=== PATIENT | male | born 1970 | race Caucasian/White ===

== ENCOUNTER → 2019-01-20 | Outpatient (CLI) | payer SELFPAY ==
[~2019-01-20] MED LIST: DIAZ5 PO; HYDMOR2 PO; NAPR220; OXYACE5T PO; RXCLIN PO; RXHYDMOR2 PO; RXOXYACE PO
== END | disposition home or self-care (01) ==
LOC: LAB SHORT 13:21 → LAB 13:21
DX: E11.621 Type 2 diabetes mellitus with foot ulcer (principal); L89.892 Pressure ulcer of other site, stage 2
CPT/HCPCS: 87070; 87075; 87077; 87147; 87186; 87205

== ENCOUNTER 2019-02-07 07:30 | Day surgery (SDC) | payer OTHER | END 2019-02-07 23:07 | disposition home or self-care (01) | LOC: WOUND | DX: E11.621 Type 2 diabetes mellitus with foot ulcer (principal); L97.525 Non-pressure chronic ulcer of other part of left foot with muscle involvement without evidence of necrosis; L97.515 Non-pressure chronic ulcer of other part of right foot with muscle involvement without evidence of necrosis; I10 Essential (primary) hypertension; F17.210 Nicotine dependence, cigarettes, uncomplicated | CPT/HCPCS: G0463 ==

== ENCOUNTER 2019-02-11 15:01 | Day surgery (SDC) | payer OTHER | END 2019-02-11 22:58 | disposition home or self-care (01) | LOC: WOUND 15:01 | DX: E11.621 Type 2 diabetes mellitus with foot ulcer (principal); L97.525 Non-pressure chronic ulcer of other part of left foot with muscle involvement without evidence of necrosis; I10 Essential (primary) hypertension; F17.200 Nicotine dependence, unspecified, uncomplicated; M54.9 Dorsalgia, unspecified; G89.29 Other chronic pain ==

== ENCOUNTER 2019-02-14 11:10 | Day surgery (SDC) | payer OTHER | END 2019-02-14 22:44 | disposition home or self-care (01) | LOC: WOUND 11:10 | DX: E11.621 Type 2 diabetes mellitus with foot ulcer (principal); L97.525 Non-pressure chronic ulcer of other part of left foot with muscle involvement without evidence of necrosis; L97.515 Non-pressure chronic ulcer of other part of right foot with muscle involvement without evidence of necrosis; M54.9 Dorsalgia, unspecified; G89.29 Other chronic pain; F17.200 Nicotine dependence, unspecified, uncomplicated; I10 Essential (primary) hypertension ==

== ENCOUNTER 2019-02-16 10:45 | Day surgery (SDC) | payer OTHER | END 2019-02-17 22:50 | disposition home or self-care (01) | LOC: WOUND 10:45 | DX: E11.621 Type 2 diabetes mellitus with foot ulcer (principal); L97.525 Non-pressure chronic ulcer of other part of left foot with muscle involvement without evidence of necrosis; I10 Essential (primary) hypertension; F17.200 Nicotine dependence, unspecified, uncomplicated | CPT/HCPCS: 87070; 87075; 87077; 87147; 87186; 87205; G0463 ==

== ENCOUNTER 2019-02-23 00:07 | Day surgery (SDC) | payer OTHER | END 2019-02-23 22:45 | disposition home or self-care (01) | LOC: WOUND 00:07 | DX: E11.621 Type 2 diabetes mellitus with foot ulcer (principal); L97.525 Non-pressure chronic ulcer of other part of left foot with muscle involvement without evidence of necrosis; E11.65 Type 2 diabetes mellitus with hyperglycemia; I10 Essential (primary) hypertension; F17.200 Nicotine dependence, unspecified, uncomplicated ==

== ENCOUNTER 2019-03-03 00:37 | Day surgery (SDC) | payer OTHER | END 2019-03-03 23:20 | disposition home or self-care (01) | LOC: WOUND 00:37 | DX: E11.621 Type 2 diabetes mellitus with foot ulcer (principal); L97.522 Non-pressure chronic ulcer of other part of left foot with fat layer exposed; S60.944A Unspecified superficial injury of right ring finger, initial encounter; E11.65 Type 2 diabetes mellitus with hyperglycemia; I10 Essential (primary) hypertension; F17.200 Nicotine dependence, unspecified, uncomplicated ==

== ENCOUNTER 2019-03-08 00:24 | Day surgery (SDC) | payer OTHER | END 2019-03-08 23:08 | disposition home or self-care (01) | LOC: WOUND 00:24 | DX: E11.621 Type 2 diabetes mellitus with foot ulcer (principal); L97.525 Non-pressure chronic ulcer of other part of left foot with muscle involvement without evidence of necrosis; S61.206A Unspecified open wound of right little finger without damage to nail, initial encounter; S60.944A Unspecified superficial injury of right ring finger, initial encounter; M54.9 Dorsalgia, unspecified; G89.29 Other chronic pain; F17.200 Nicotine dependence, unspecified, uncomplicated; I10 Essential (primary) hypertension ==

== ENCOUNTER 2019-03-10 07:51 | Day surgery (SDC) | payer OTHER | END 2019-03-10 23:12 | disposition home or self-care (01) | LOC: WOUND 07:51 | DX: E11.621 Type 2 diabetes mellitus with foot ulcer (principal); L97.525 Non-pressure chronic ulcer of other part of left foot with muscle involvement without evidence of necrosis; S60.944A Unspecified superficial injury of right ring finger, initial encounter; E11.65 Type 2 diabetes mellitus with hyperglycemia; I10 Essential (primary) hypertension; F17.200 Nicotine dependence, unspecified, uncomplicated ==

== ENCOUNTER 2019-03-14 15:05 | Day surgery (SDC) | payer OTHER ==
[2019-05-19] MEDS ORDERED: Glucophage1000 MG PO (12:45)
[2019-05-19] MEDS ORDERED: PIOG15 PO (12:46)
[2019-05-19] MEDS ORDERED: LOSA50 PO (12:46)
[2019-05-20] MEDS ORDERED: ACET325 PO (14:28)
[2019-05-20] MEDS ORDERED: Ceftriaxone1 G2 IV (14:29)
[2019-05-20] MEDS ORDERED: BASAGLAR K100 UNIT/1 SC (14:30)
[2019-05-20] MEDS ORDERED: INSULIN LI100 UNIT/2 SC ×2 (14:31→14:33)
[2019-05-20] MEDS ORDERED: METO50ER PO (14:37)
[2019-05-20] MEDS ORDERED: VANCOMYCIN1.75 GM/50 IV (14:37)
[2019-05-27] MEDS ORDERED: Rocephin 1g1 G/50 ML IV (12:07)
[2019-05-27] MEDS ORDERED: HYDR1TAB94 PO (18:56)
== END 2019-03-14 22:43 | disposition home or self-care (01) ==
LOC: WOUND 15:05
DX: E11.621 Type 2 diabetes mellitus with foot ulcer (principal); L97.525 Non-pressure chronic ulcer of other part of left foot with muscle involvement without evidence of necrosis; S61.216A Laceration without foreign body of right little finger without damage to nail, initial encounter; E11.65 Type 2 diabetes mellitus with hyperglycemia; I10 Essential (primary) hypertension; Z72.0 Tobacco use

== ENCOUNTER 2019-03-17 15:01 | Day surgery (SDC) | payer OTHER ==
[2019-05-19] MEDS ORDERED: Glucophage1000 MG PO (12:45)
[2019-05-19] MEDS ORDERED: PIOG15 PO (12:46)
[2019-05-19] MEDS ORDERED: LOSA50 PO (12:46)
[2019-05-20] MEDS ORDERED: ACET325 PO (14:28)
[2019-05-20] MEDS ORDERED: Ceftriaxone1 G2 IV (14:29)
[2019-05-20] MEDS ORDERED: BASAGLAR K100 UNIT/1 SC (14:30)
[2019-05-20] MEDS ORDERED: INSULIN LI100 UNIT/2 SC ×2 (14:31→14:33)
[2019-05-20] MEDS ORDERED: METO50ER PO (14:37)
[2019-05-20] MEDS ORDERED: VANCOMYCIN1.75 GM/50 IV (14:37)
[2019-05-27] MEDS ORDERED: Rocephin 1g1 G/50 ML IV (12:07)
[2019-05-27] MEDS ORDERED: HYDR1TAB94 PO (18:56)
== END 2019-03-17 22:42 | disposition home or self-care (01) ==
LOC: WOUND 15:01
DX: E11.621 Type 2 diabetes mellitus with foot ulcer (principal); L97.522 Non-pressure chronic ulcer of other part of left foot with fat layer exposed; S60.944A Unspecified superficial injury of right ring finger, initial encounter; E11.65 Type 2 diabetes mellitus with hyperglycemia; I10 Essential (primary) hypertension; Z72.0 Tobacco use

== ENCOUNTER 2019-03-24 07:59 | Day surgery (SDC) | payer OTHER ==
[2019-05-19] MEDS ORDERED: Glucophage1000 MG PO (12:45)
[2019-05-19] MEDS ORDERED: LOSA50 PO (12:46)
[2019-05-19] MEDS ORDERED: PIOG15 PO (12:46)
[2019-05-20] MEDS ORDERED: ACET325 PO (14:28)
[2019-05-20] MEDS ORDERED: Ceftriaxone1 G2 IV (14:29)
[2019-05-20] MEDS ORDERED: BASAGLAR K100 UNIT/1 SC (14:30)
[2019-05-20] MEDS ORDERED: INSULIN LI100 UNIT/2 SC ×2 (14:31→14:33)
[2019-05-20] MEDS ORDERED: METO50ER PO (14:37)
[2019-05-20] MEDS ORDERED: VANCOMYCIN1.75 GM/50 IV (14:37)
[2019-05-27] MEDS ORDERED: Rocephin 1g1 G/50 ML IV (12:07)
[2019-05-27] MEDS ORDERED: HYDR1TAB94 PO (18:56)
== END 2019-03-24 23:25 | disposition home or self-care (01) ==
LOC: WOUND 07:59
DX: E11.621 Type 2 diabetes mellitus with foot ulcer (principal); L97.521 Non-pressure chronic ulcer of other part of left foot limited to breakdown of skin; S60.944A Unspecified superficial injury of right ring finger, initial encounter; E11.65 Type 2 diabetes mellitus with hyperglycemia; I10 Essential (primary) hypertension; F17.200 Nicotine dependence, unspecified, uncomplicated
CPT/HCPCS: 87070; 87075; 87077; 87205

== ENCOUNTER 2019-03-28 14:06 | Day surgery (SDC) | payer OTHER ==
[2019-05-19] MEDS ORDERED: Glucophage1000 MG PO (12:45)
[2019-05-19] MEDS ORDERED: PIOG15 PO (12:46)
[2019-05-19] MEDS ORDERED: LOSA50 PO (12:46)
[2019-05-20] MEDS ORDERED: ACET325 PO (14:28)
[2019-05-20] MEDS ORDERED: Ceftriaxone1 G2 IV (14:29)
[2019-05-20] MEDS ORDERED: BASAGLAR K100 UNIT/1 SC (14:30)
[2019-05-20] MEDS ORDERED: INSULIN LI100 UNIT/2 SC ×2 (14:31→14:33)
[2019-05-20] MEDS ORDERED: VANCOMYCIN1.75 GM/50 IV (14:37)
[2019-05-20] MEDS ORDERED: METO50ER PO (14:37)
[2019-05-27] MEDS ORDERED: Rocephin 1g1 G/50 ML IV (12:07)
[2019-05-27] MEDS ORDERED: HYDR1TAB94 PO (18:56)
== END 2019-03-28 23:13 | disposition home or self-care (01) ==
LOC: WOUND 14:06
DX: E11.621 Type 2 diabetes mellitus with foot ulcer (principal); L97.521 Non-pressure chronic ulcer of other part of left foot limited to breakdown of skin; M54.9 Dorsalgia, unspecified; G89.29 Other chronic pain; I10 Essential (primary) hypertension; F17.200 Nicotine dependence, unspecified, uncomplicated; E11.65 Type 2 diabetes mellitus with hyperglycemia

== ENCOUNTER 2019-03-31 07:57 | Day surgery (SDC) | payer OTHER ==
[2019-05-19] MEDS ORDERED: Glucophage1000 MG PO (12:45)
[2019-05-19] MEDS ORDERED: PIOG15 PO (12:46)
[2019-05-19] MEDS ORDERED: LOSA50 PO (12:46)
[2019-05-20] MEDS ORDERED: ACET325 PO (14:28)
[2019-05-20] MEDS ORDERED: Ceftriaxone1 G2 IV (14:29)
[2019-05-20] MEDS ORDERED: BASAGLAR K100 UNIT/1 SC (14:30)
[2019-05-20] MEDS ORDERED: INSULIN LI100 UNIT/2 SC ×2 (14:31→14:33)
[2019-05-20] MEDS ORDERED: VANCOMYCIN1.75 GM/50 IV (14:37)
[2019-05-20] MEDS ORDERED: METO50ER PO (14:37)
[2019-05-27] MEDS ORDERED: Rocephin 1g1 G/50 ML IV (12:07)
[2019-05-27] MEDS ORDERED: HYDR1TAB94 PO (18:56)
== END 2019-03-31 22:51 | disposition home or self-care (01) ==
LOC: WOUND 07:57
DX: E11.621 Type 2 diabetes mellitus with foot ulcer (principal); L97.522 Non-pressure chronic ulcer of other part of left foot with fat layer exposed; S60.944A Unspecified superficial injury of right ring finger, initial encounter; E11.65 Type 2 diabetes mellitus with hyperglycemia; I10 Essential (primary) hypertension; Z72.0 Tobacco use

== ENCOUNTER 2019-04-04 13:50 | Day surgery (SDC) | payer OTHER ==
[2019-05-19] MEDS ORDERED: Glucophage1000 MG PO (12:45)
[2019-05-19] MEDS ORDERED: PIOG15 PO (12:46)
[2019-05-19] MEDS ORDERED: LOSA50 PO (12:46)
[2019-05-20] MEDS ORDERED: ACET325 PO (14:28)
[2019-05-20] MEDS ORDERED: Ceftriaxone1 G2 IV (14:29)
[2019-05-20] MEDS ORDERED: BASAGLAR K100 UNIT/1 SC (14:30)
[2019-05-20] MEDS ORDERED: INSULIN LI100 UNIT/2 SC ×2 (14:31→14:33)
[2019-05-20] MEDS ORDERED: VANCOMYCIN1.75 GM/50 IV (14:37)
[2019-05-20] MEDS ORDERED: METO50ER PO (14:37)
[2019-05-27] MEDS ORDERED: Rocephin 1g1 G/50 ML IV (12:07)
[2019-05-27] MEDS ORDERED: HYDR1TAB94 PO (18:56)
== END 2019-04-04 22:40 | disposition home or self-care (01) ==
LOC: WOUND 13:50
DX: E11.621 Type 2 diabetes mellitus with foot ulcer (principal); L97.521 Non-pressure chronic ulcer of other part of left foot limited to breakdown of skin; S60.944A Unspecified superficial injury of right ring finger, initial encounter; E11.65 Type 2 diabetes mellitus with hyperglycemia; I10 Essential (primary) hypertension; F17.200 Nicotine dependence, unspecified, uncomplicated
CPT/HCPCS: 36415; 73630; 80053; 85651; 86140

== ENCOUNTER 2019-04-13 14:00 | Day surgery (SDC) | payer OTHER ==
[2019-05-19] MEDS ORDERED: Glucophage1000 MG PO (12:45)
[2019-05-19] MEDS ORDERED: LOSA50 PO (12:46)
[2019-05-19] MEDS ORDERED: PIOG15 PO (12:46)
[2019-05-20] MEDS ORDERED: ACET325 PO (14:28)
[2019-05-20] MEDS ORDERED: Ceftriaxone1 G2 IV (14:29)
[2019-05-20] MEDS ORDERED: BASAGLAR K100 UNIT/1 SC (14:30)
[2019-05-20] MEDS ORDERED: INSULIN LI100 UNIT/2 SC ×2 (14:31→14:33)
[2019-05-20] MEDS ORDERED: VANCOMYCIN1.75 GM/50 IV (14:37)
[2019-05-20] MEDS ORDERED: METO50ER PO (14:37)
[2019-05-27] MEDS ORDERED: Rocephin 1g1 G/50 ML IV (12:07)
[2019-05-27] MEDS ORDERED: HYDR1TAB94 PO (18:56)
== END 2019-04-13 23:37 | disposition home or self-care (01) ==
LOC: WOUND 14:00
DX: E11.621 Type 2 diabetes mellitus with foot ulcer (principal); L97.525 Non-pressure chronic ulcer of other part of left foot with muscle involvement without evidence of necrosis; S60.944A Unspecified superficial injury of right ring finger, initial encounter; E11.65 Type 2 diabetes mellitus with hyperglycemia; F17.200 Nicotine dependence, unspecified, uncomplicated; Z48.00 Encounter for change or removal of nonsurgical wound dressing
CPT/HCPCS: G0463

== ENCOUNTER → 2019-05-18 | Outpatient (CLI) | payer OTHER ==
[~2019-05-18] MED LIST changes: +ACET325 PO; +Amoxicillin500 MG PO; +BASAGLAR K100 UNIT/1 SC; +Ceftriaxone1 G2 IV; +Culturelle1 CAP PO; +Glucophage1000 MG PO; +HYDR1TAB94 PO; +INSULIN LI100 UNIT/2 SC; +LOSA50 PO; +METO50ER PO; +PIOG15 PO; +Rocephin 1g1 G/50 ML IV; +VANCOMYCIN1.75 GM/50 IV
== END | disposition home or self-care (01) ==
LOC: LAB 17:35 → LAB SHORT 17:35
DX: L03.111 Cellulitis of right axilla (principal); L97.423 Non-pressure chronic ulcer of left heel and midfoot with necrosis of muscle
CPT/HCPCS: 87070; 87147; 87205

== ENCOUNTER 2019-05-19 08:18 | Inpatient (IN) | payer OTHER ==
[~2019-05-19] VITALS: Ht 198.1 cm; Wt 132.0 kg
[~2019-05-19 08:18] MED LIST changes: -ACET325 PO; -Amoxicillin500 MG PO; -BASAGLAR K100 UNIT/1 SC; -Ceftriaxone1 G2 IV; -Culturelle1 CAP PO; -Glucophage1000 MG PO; -HYDR1TAB94 PO; -INSULIN LI100 UNIT/2 SC; -LOSA50 PO; -METO50ER PO; -PIOG15 PO; -Rocephin 1g1 G/50 ML IV; -VANCOMYCIN1.75 GM/50 IV
[2019-05-19 09:16] LABS: BASOPHILS ABSOLUTE AUTO 0.03 K/mm3 (0.00-0.23); BASOPHILS PERCENT AUTO 0 % (0-2); EOSINOPHILS ABSOLUTE AUTO 0.23 K/mm3 (0.00-0.68); EOSINOPHILS PERCENT AUTO 2 % (0-6); Hematocrit 43.5 % (37.0-53.0); Hemoglobin 14.7 g/dL (13.5-17.5); IMMATURE GRAN ABSOLUTE AUTO 0.12 K/mm3 (0.00-0.10); IMMATURE GRAN PERCENT AUTO 1 % (0-1); LYMPHOCYTES ABSOLUTE AUTO 1.92 K/mm3 (0.84-5.20); LYMPHOCYTES PERCENT AUTO 16 % (21-46); MONOCYTES ABSOLUTE AUTO 1.12 K/mm3 (0.16-1.47); MONOCYTES PERCENT AUTO 9 % (4-13); Mean Corpuscular HGB 29.2 pg (26.0-34.0); Mean Corpuscular HGB Conc 33.8 g/dL (31.5-36.5); Mean Corpuscular Volume 87 fL (80-100); Mean Platelet Volume 9.5 fL (9.1-12.4); NEUTROPHILS ABSOLUTE AUTO 8.88 K/mm3 (1.96-9.15); NEUTROPHILS PERCENT AUTO 72 % (41-73); Platelet Count 358 K/mm3 (150-400); RDW Coefficient Variation 12.3 % (11.7-14.2); RDW Standard Deviation 39.1 fL (35.1-46.3); Red Blood Cell Count 5.03 M/mm3 (4.30-5.90)
[2019-05-19 09:31] LABS: Alanine Aminotransfer (ALT/SGP 49 U/L (12-78); Albumin, Blood 2.6 g/dL (3.4-5.0); Albumin/Globulin Ratio 0.5 (0.8-1.8); Alk Phos 143 U/L (50-136); Anion Gap 10 mmol/L (6-16); Aspartate Aminotrans (AST/SGOT 34 U/L (12-37); Bilirubin, Total 0.2 mg/dL (0.1-1.0); Blood Urea Nitrogen 16 mg/dL (8-24); Bun/Creatinine Ratio 22.3 (12.0-20.0); CO2, Blood 23 mmol/L (21-32); Calcium, Blood 8.8 mg/dL (8.5-10.1); Chloride, Blood 97 mmol/L (98-108); Creatinine, Blood 0.72 mg/dL (0.60-1.20); Glomerular Filtration Rate >60 (60-); Glucose, Blood 593 mg/dL (70-99); Potassium, Blood 4.5 mmol/L (3.5-5.5); Sodium, Blood 130 mmol/L (136-145); Total Protein, Blood 7.6 g/dL (6.4-8.2)
[2019-05-19] MEDS ORDERED: Glucophage1000 MG PO ×2 (12:45)
[2019-05-19] MEDS ORDERED: PIOG15 PO ×2 (12:46)
[2019-05-19] MEDS ORDERED: LOSA50 PO ×2 (12:46)
--- NOTE | 2019-05-19 14:06 | NUR ---
NEW ER ADMIT, ARRIVE TO RM APPROX 1200. STATE REASON FOR HOSP L SOLE OF FOOT ULCER, SENT TO HOSP BY DR LEWIS HIS PODIATIST. HAD PODIATRY CONSULT IN ER w DR JONES, WOUND CARE/DRSG CHANGE DONE. HE STATE NO PAIN, STATE HX NEUROPATHY BILAT FEET. BLOOD SUGAR ELEVATED, 494, DR CERNA ORDER HSS + 5UNITS AC. ORDER CHEESEMAKING LABORER CONSULT. DIABETES EDUCATION PROVIDED. INITIAL LACTIC ACID ELEVATED HOWEVER REPEAT WNL. IV VANCO INFUSING/ORDER. BP ELEVATED 192/118, AWARE, PT IS A/O X4, PLEASANT, IND IN. WILL MX VS.
--- NOTE | 2019-05-19 16:05 | NUR ---
DR CERNA D/C CHEY AFTER 12 GIVEN. ORDER IV LEVAQUIN. MRI L FOOT COMPLETED. HE HAS BEEN UP AMBULATE IND. STATE NO PAIN L FOOT.
--- NOTE | 2019-05-19 19:34 | NUR ---
DR MCCLURE OFFICE CALL TO ASSURE PODIATRY CONSULT. OFFICIAL CONSULT PLACED w DR JONES/DR CERNA. SHE ORDER METOPROLOL 50MG NOW TO ADDRESS ELEVATED BP & HR. PT HAS BEEN UP AMBULATING IN [place] w POST-OP BENJAMINE Angela BERNARD, SIRIA MCKEON.
[2019-05-20 04:57] LABS: BASOPHILS ABSOLUTE AUTO 0.04 K/mm3 (0.00-0.23); BASOPHILS PERCENT AUTO 0 % (0-2); EOSINOPHILS ABSOLUTE AUTO 0.28 K/mm3 (0.00-0.68); EOSINOPHILS PERCENT AUTO 2 % (0-6); Hematocrit 43.4 % (37.0-53.0); Hemoglobin 14.9 g/dL (13.5-17.5); IMMATURE GRAN ABSOLUTE AUTO 0.12 K/mm3 (0.00-0.10); IMMATURE GRAN PERCENT AUTO 1 % (0-1); LYMPHOCYTES ABSOLUTE AUTO 3.89 K/mm3 (0.84-5.20); LYMPHOCYTES PERCENT AUTO 26 % (21-46); MONOCYTES ABSOLUTE AUTO 1.52 K/mm3 (0.16-1.47); MONOCYTES PERCENT AUTO 10 % (4-13); Mean Corpuscular HGB 28.9 pg (26.0-34.0); Mean Corpuscular HGB Conc 34.3 g/dL (31.5-36.5); Mean Platelet Volume 9.4 fL (9.1-12.4); NEUTROPHILS ABSOLUTE AUTO 9.05 K/mm3 (1.96-9.15); NEUTROPHILS PERCENT AUTO 61 % (41-73); Platelet Count 367 K/mm3 (150-400); RDW Coefficient Variation 12.3 % (11.7-14.2); RDW Standard Deviation 37.2 fL (35.1-46.3); Red Blood Cell Count 5.15 M/mm3 (4.30-5.90)
[2019-05-20 05:00] LABS: Mean Corpuscular Volume 84 fL (80-100)
[2019-05-20 05:11] LABS: Anion Gap 7 mmol/L (6-16); Blood Urea Nitrogen 15 mg/dL (8-24); Bun/Creatinine Ratio 16.4 (12.0-20.0); CO2, Blood 28 mmol/L (21-32); Calcium, Blood 9.1 mg/dL (8.5-10.1); Chloride, Blood 101 mmol/L (98-108); Creatinine, Blood 0.91 mg/dL (0.60-1.20); Glomerular Filtration Rate >60 (60-); Glucose, Blood 113 mg/dL (70-99); Potassium, Blood 4.2 mmol/L (3.5-5.5); Sodium, Blood 136 mmol/L (136-145)
--- NOTE | 2019-05-20 06:52 | NUR ---
SHIFT SUMMARY PT IS A 48 Y/O MALE, ADMITTED WITH A LEFT DIABETIC FOOT ULCER. HE IS A&O X 4, AND INDEPENDENT IN THE ROOM. PT HAS GONE OUTSIDE MULTIPLE TIMES TO SMOKE. DURING THE NIGHT, THE PT BEGAN REPORTING FEELING LETHARGIC AND LIGHTHEADED, "LIKE I HAVE STONES ATTACHED TO MY LIMBS". HIS BLOOD SUGAR AT THAT TIME WAS 111, DOWN FROM THE 400-500S ON ADMISSION. PT REPORTED THAT HIS BLOOD SUGARS ARE NORMALLY HIGH AT HOME. THE HOSPITALIST DR SEN WAS CONSULTED, AND HIS NIGHTTIME LONG ACTING INSULIN DOSE WAS BROUGHT DOWN TO 5 UNITS OF LATUS. HE WAS ALSO GIVEN ORANGE JUICE AND A SNACK AT THAT TIME. ON RECHECK AT MIDNIGHT, BLOOD SUGAR WAS 152. PT'S HEART RATE WAS ELEVATED IN THE 100-110S. ALL OTHER VITALS STABLE. PT STATES HE FEELS "BETTER" THIS AM. PT HAS BEEN NPO SINCE MIDNIGHT FOR A SURGICAL PROCEDURE ON HIS L FOOT TODAY. NO OTHER ACUTE CHANGES IN PT CONDITION NOTED. WILL CONTINUE TO MONITOR AND TREAT PER EMAR UNTIL HAND OFF TO DAY SHIFT RN.
[2019-05-20] MEDS ORDERED: ACET325 PO ×2 (14:28)
[2019-05-20] MEDS ORDERED: Ceftriaxone1 G2 IV ×2 (14:29)
[2019-05-20] MEDS ORDERED: BASAGLAR K100 UNIT/1 SC ×2 (14:30)
[2019-05-20] MEDS ORDERED: INSULIN LI100 UNIT/2 SC ×4 (14:31→14:33)
[2019-05-20] MEDS ORDERED: VANCOMYCIN1.75 GM/50 IV ×2 (14:37)
[2019-05-20] MEDS ORDERED: METO50ER PO ×2 (14:37)
--- NOTE | 2019-05-20 18:21 | NUR ---
DISCHARGE SUMMARY PT DISCHARGED TO HOME. PT LEFT ROOM AT 1810 VIA WHEELCHAIR WITH RN ESCORT. PT EDUCATED ABOUT HIS MEDICATIONS, USING INSULIN, SLIDING SCALE, ETC. PT INSTRUCTED TO AND AGREES TO RETURN TO INFUSION CLINIC TOMORROW MORNING AND FOLLOW UP WITH DR LOPEZ ON THURSDAY AT 1430 PER APPOINTMENT TIME. PT INSTRUCTED TO PETROLEUM REFINING EQUIPMENT OPERATOR MEDICATIONS FROM PHARMACY. PT EDUCATED ON CARE OF IV SITE, WHICH IS AN 18G IN R. FOREARM AND INSRUCTED TO KEEP CLEAN AND DRY. PT AGREES TO PLAN OF CARE.
[2019-05-27] MEDS ORDERED: Rocephin 1g1 G/50 ML IV (12:07)
[2019-05-27] MEDS ORDERED: HYDR1TAB94 PO (18:56)
== END 2019-05-20 18:09 | disposition home or self-care (01) | DRG 871 ==
LOC: ER 08:18 → MEDS 08:19 → ER 10:56 → MEDS 11:00 → ER 11:15 → MEDS 12:55
PROVIDERS: Physician Assistant; ADMIT Internal Medicine
DX: A40.1 Sepsis due to streptococcus, group B (principal); R65.21 Severe sepsis with septic shock; M86.9 Osteomyelitis, unspecified; L97.528 Non-pressure chronic ulcer of other part of left foot with other specified severity; I10 Essential (primary) hypertension; E11.65 Type 2 diabetes mellitus with hyperglycemia; E11.69 Type 2 diabetes mellitus with other specified complication; E11.621 Type 2 diabetes mellitus with foot ulcer; F17.200 Nicotine dependence, unspecified, uncomplicated; Z79.84 Long term (current) use of oral hypoglycemic drugs; Z79.899 Other long term (current) drug therapy
CPT/HCPCS: 36415; 73630; 73718; 80048; 80053; 80202; 82947; 83036; 83605; 85025; 87040; 87070; 87075; 87076; 87147; 87185; 87205; 96365; 99284-25; A9270-GY; G0378; J0696; J1644; J1956; J2543; J3370; J7050

== ENCOUNTER 2019-05-21 07:58 | Day surgery (SDC) | payer OTHER ==
[~2019-05-21 07:58] MED LIST changes: +ACET325 PO; +BASAGLAR K100 UNIT/1 SC; +Ceftriaxone1 G2 IV; +Glucophage1000 MG PO; +INSULIN LI100 UNIT/2 SC; +LOSA50 PO; +METO50ER PO; +PIOG15 PO; +VANCOMYCIN1.75 GM/50 IV
[2019-05-27] MEDS ORDERED: Rocephin 1g1 G/50 ML IV (12:07)
[2019-05-27] MEDS ORDERED: HYDR1TAB94 PO (18:56)
== END 2019-05-21 17:18 | disposition home or self-care (01) ==
LOC: ATC 07:58
DX: A41.9 Sepsis, unspecified organism (principal); R65.21 Severe sepsis with septic shock; E11.69 Type 2 diabetes mellitus with other specified complication; E11.621 Type 2 diabetes mellitus with foot ulcer; M86.172 Other acute osteomyelitis, left ankle and foot; L97.423 Non-pressure chronic ulcer of left heel and midfoot with necrosis of muscle; I10 Essential (primary) hypertension; Z79.899 Other long term (current) drug therapy; Z79.84 Long term (current) use of oral hypoglycemic drugs
CPT/HCPCS: 96365; 96367; J0696; J3370; J7050

== ENCOUNTER 2019-05-22 07:08 | Day surgery (SDC) | payer OTHER ==
[2019-05-22 08:18] LABS: Creatinine, Blood 0.77 mg/dL (0.60-1.20); Glomerular Filtration Rate >60 (60-); Vancomycin, Trough 8.2 ug/mL (5.0-10.0)
[2019-05-27] MEDS ORDERED: Rocephin 1g1 G/50 ML IV (12:07)
[2019-05-27] MEDS ORDERED: HYDR1TAB94 PO (18:56)
== END 2019-05-22 17:15 | disposition home or self-care (01) ==
LOC: ATC 07:08
PROVIDERS: Orthopaedic Surgery
DX: A41.9 Sepsis, unspecified organism (principal); R65.21 Severe sepsis with septic shock; E11.69 Type 2 diabetes mellitus with other specified complication; M86.172 Other acute osteomyelitis, left ankle and foot; L03.116 Cellulitis of left lower limb; E11.621 Type 2 diabetes mellitus with foot ulcer; L97.423 Non-pressure chronic ulcer of left heel and midfoot with necrosis of muscle; I10 Essential (primary) hypertension
CPT/HCPCS: 80202; 82565; 96365; 96367; J0696; J3370; J7050

== ENCOUNTER 2019-05-23 00:10 | Day surgery (SDC) | payer OTHER ==
[2019-05-27] MEDS ORDERED: Rocephin 1g1 G/50 ML IV (12:07)
[2019-05-27] MEDS ORDERED: HYDR1TAB94 PO (18:56)
== END 2019-05-23 18:04 | disposition home or self-care (01) ==
LOC: ATC 00:10
DX: A41.9 Sepsis, unspecified organism (principal); R65.21 Severe sepsis with septic shock; E11.69 Type 2 diabetes mellitus with other specified complication; M86.172 Other acute osteomyelitis, left ankle and foot; I10 Essential (primary) hypertension; M54.9 Dorsalgia, unspecified; G89.29 Other chronic pain; L03.116 Cellulitis of left lower limb; E11.621 Type 2 diabetes mellitus with foot ulcer; L97.423 Non-pressure chronic ulcer of left heel and midfoot with necrosis of muscle
CPT/HCPCS: 96365; 96366; 96367; J0696; J3370; J7050

== ENCOUNTER 2019-05-24 00:16 | Day surgery (SDC) | payer OTHER ==
[2019-05-27] MEDS ORDERED: Rocephin 1g1 G/50 ML IV (12:07)
[2019-05-27] MEDS ORDERED: HYDR1TAB94 PO (18:56)
== END 2019-05-24 18:11 | disposition home or self-care (01) ==
LOC: ATC 00:16
DX: A41.9 Sepsis, unspecified organism (principal); R65.21 Severe sepsis with septic shock; E11.621 Type 2 diabetes mellitus with foot ulcer; M86.172 Other acute osteomyelitis, left ankle and foot; L97.423 Non-pressure chronic ulcer of left heel and midfoot with necrosis of muscle; I10 Essential (primary) hypertension; Z79.899 Other long term (current) drug therapy; Z79.4 Long term (current) use of insulin
CPT/HCPCS: 96365; 96366; 96367; 96415; J0696; J3370; J7050

== ENCOUNTER 2019-05-25 00:09 | Day surgery (SDC) | payer OTHER ==
[2019-05-25 08:10] LABS: Creatinine, Blood 0.68 mg/dL (0.60-1.20); Vancomycin, Trough 8.8 ug/mL (5.0-10.0)
--- NOTE | 2019-05-25 18:25 | NUR ---
PT HAS AREA OF RED/TENDER AND HARD "ROPE" PALPATED, AT PREVIOUS SITE OF LAST IV. PT TEACHING ON WARM/COLD PACKS AND TO MONITOR SITE. NURSING TO MONITOR WITH EACH VISIT.
[2019-05-27] MEDS ORDERED: Rocephin 1g1 G/50 ML IV (12:07)
[2019-05-27] MEDS ORDERED: HYDR1TAB94 PO (18:56)
== END 2019-05-25 18:23 | disposition home or self-care (01) ==
LOC: ATC 00:09
PROVIDERS: Internal Medicine
DX: A41.9 Sepsis, unspecified organism (principal); R65.21 Severe sepsis with septic shock; M86.172 Other acute osteomyelitis, left ankle and foot; E11.9 Type 2 diabetes mellitus without complications; I10 Essential (primary) hypertension; M54.9 Dorsalgia, unspecified; G89.29 Other chronic pain
CPT/HCPCS: 80202; 82565; 96365; 96366; 96367; J0696; J3370; J7050

== ENCOUNTER 2019-05-26 00:24 | Day surgery (SDC) | payer OTHER ==
[2019-05-27] MEDS ORDERED: Rocephin 1g1 G/50 ML IV (12:07)
[2019-05-27] MEDS ORDERED: HYDR1TAB94 PO (18:56)
== END 2019-05-26 17:59 | disposition home or self-care (01) ==
LOC: ATC 00:24
DX: A41.9 Sepsis, unspecified organism (principal); R65.21 Severe sepsis with septic shock; E11.69 Type 2 diabetes mellitus with other specified complication; M86.172 Other acute osteomyelitis, left ankle and foot; E11.621 Type 2 diabetes mellitus with foot ulcer; L97.423 Non-pressure chronic ulcer of left heel and midfoot with necrosis of muscle; I10 Essential (primary) hypertension; Z79.899 Other long term (current) drug therapy; Z79.84 Long term (current) use of oral hypoglycemic drugs
CPT/HCPCS: 96365; 96367; J0696; J3370; J7050

== ENCOUNTER 2019-05-27 11:13 | Day surgery (SDC) | payer OTHER ==
[2019-05-27] MEDS ORDERED: Rocephin 1g1 G/50 ML IV ×2 (12:07)
--- NOTE | 2019-05-27 12:23 | NUR ---
Patient up to Ambulate independently. Gait steady. History, Chart, Medications and Allergies reviewed before start of procedure.Lungs clear/DIMINISHED T/O to Auscultation. Patient confirms NPO status and agrees with scheduled surgery. PT HAS L ANTERIOR CALF WITH A PARTIALLY OPEN/SCABBED 1CM AREA AND SEVERAL HEALED ULCERS. WILI WRAP REMOVED.
--- NOTE | 2019-05-27 13:18 | NUR ---
"DAY SURGERY RN | REPORT FROM LUIS GONZALEZ"
--- NOTE | 2019-05-27 16:10 | NUR ---
05/27/19 1610 Mojgan Lauren PT HAS A 2IN RED, WARM ABCESS ON LEFT FOREARM. DR. LOPEZ EXAMINED PRIOR TO OPERATION
[2019-05-27] MEDS ORDERED: HYDR1TAB94 PO ×2 (18:56)
--- NOTE | 2019-05-27 19:42 | NUR ---
Patient is resting with family and anticipating discharging in the next few minutes. Discharge instructions given and understood. Pain medications have been picked up by the . Lungs are clear with a non productive cough. IV will be left inplace for antibiotic therapy, flushed and clamped. Lt foot with bandages and serge wrap that extends to just above the ankle. dressing is clean and dry. patient is only experiencing pain when he attemts to extend or flex his foot. 1942- patient taken via wheel chair to his private car, transfered to seat with standby assist. belongings at patient's side.
== END 2019-05-27 19:45 | disposition home or self-care (01) ==
LOC: ORSCMMR 11:13 → SURS 17:30 → ORSCMMR 19:45
PROVIDERS: Orthopaedic Surgery
PROC: 0Y6N0Z9 Detachment at Left Foot, Partial 1st Ray, Open Approach (ICD-10-PCS; principal; 2019-05-27 12:30)
PROC: 0Y6N0ZC Detachment at Left Foot, Partial 3rd Ray, Open Approach (ICD-10-PCS; principal; 2019-05-27 12:30)
PROC: 0Y6N0ZF Detachment at Left Foot, Partial 5th Ray, Open Approach (ICD-10-PCS; principal; 2019-05-27 12:30)
PROC: 0Y6N0ZD Detachment at Left Foot, Partial 4th Ray, Open Approach (ICD-10-PCS; principal; 2019-05-27 12:30)
PROC: 0Y6N0ZB Detachment at Left Foot, Partial 2nd Ray, Open Approach (ICD-10-PCS; principal; 2019-05-27 12:30)
DX: M86.172 Other acute osteomyelitis, left ankle and foot (principal); L03.116 Cellulitis of left lower limb; I10 Essential (primary) hypertension; E11.9 Type 2 diabetes mellitus without complications; A41.9 Sepsis, unspecified organism; R65.21 Severe sepsis with septic shock; M54.9 Dorsalgia, unspecified; G89.29 Other chronic pain
CPT/HCPCS: 82947; 88307; 88311; 96365; 96367; J0690; J0696; J1100; J2250; J2370; J2405; J2704; J3010; J3370; J7050; J7120

== ENCOUNTER 2019-05-28 07:41 | Day surgery (SDC) | payer OTHER ==
[~2019-05-28 07:41] MED LIST changes: +HYDR1TAB94 PO; +Rocephin 1g1 G/50 ML IV
--- NOTE | 2019-05-28 08:00 | NUR ---
LABS DRAWN FROM PERIPHERAL VEIN ON LEFT UPPER ARM USING A 23 G BUTTERFLY NEEDLE. PT TOLERATED LAB DRAW WELL.
[2019-05-28 08:27] LABS: Creatinine, Blood 0.77 mg/dL (0.60-1.20); Vancomycin, Trough 9.4 ug/mL (5.0-10.0)
== END 2019-05-28 18:18 | disposition home or self-care (01) ==
LOC: ATC 07:41
PROVIDERS: Nurse Practitioner Family
DX: A41.9 Sepsis, unspecified organism (principal); R65.21 Severe sepsis with septic shock; M86.172 Other acute osteomyelitis, left ankle and foot; E11.9 Type 2 diabetes mellitus without complications; I10 Essential (primary) hypertension
CPT/HCPCS: 80202; 82565; 96365; 96366; 96367; J0696; J3370; J7050

== ENCOUNTER 2019-05-29 07:33 | Day surgery (SDC) | payer OTHER ==
--- NOTE | 2019-05-29 08:25 | NUR ---
Disease management education re: HTN and DM discussed with pt and her his request.
== END 2019-05-29 18:10 | disposition home or self-care (01) ==
LOC: ATC 07:33
DX: A41.9 Sepsis, unspecified organism (principal); R65.21 Severe sepsis with septic shock; M86.172 Other acute osteomyelitis, left ankle and foot; E11.9 Type 2 diabetes mellitus without complications; I10 Essential (primary) hypertension
CPT/HCPCS: 96365; 96366; 96367; J0696; J3370; J7050

== ENCOUNTER 2019-05-30 00:13 | Day surgery (SDC) | payer OTHER ==
--- NOTE | 2019-05-30 16:31 | NUR ---
PT ARRIVED STATING DR. LOPEZ HAS DISCONTINUED HIS IV ANTIBIOTICS AFTER HIS APPOINTMENT TODAY. CALLED DR. LOPEZ'S OFFICE AND REC'D A VERBAL ORDER TO DISCONTINUE VANCOMYCIN AND ROCEPHIN. IV REMOVED. PT TO F/U WITH DR. LOPEZ THIS WEEK FOR DSG CHANGES.
== END 2019-05-30 16:29 | disposition home or self-care (01) ==
LOC: ATC 00:13
DX: A41.9 Sepsis, unspecified organism (principal); E11.69 Type 2 diabetes mellitus with other specified complication; E11.621 Type 2 diabetes mellitus with foot ulcer; M86.172 Other acute osteomyelitis, left ankle and foot; L97.423 Non-pressure chronic ulcer of left heel and midfoot with necrosis of muscle; I10 Essential (primary) hypertension; Z79.899 Other long term (current) drug therapy; Z79.84 Long term (current) use of oral hypoglycemic drugs
CPT/HCPCS: 96365; 96367; J0696; J3370; J7050

== ENCOUNTER 2019-07-25 20:53 | Inpatient (IN) | payer OTHER ==
[~2019-07-25] VITALS: Ht 203.2 cm; Wt 127.0 kg
[2019-07-26 05:17] LABS: BASOPHILS ABSOLUTE AUTO 0.04 K/mm3 (0.00-0.23); BASOPHILS PERCENT AUTO 0 % (0-2); EOSINOPHILS ABSOLUTE AUTO 0.21 K/mm3 (0.00-0.68); EOSINOPHILS PERCENT AUTO 2 % (0-6); Hematocrit 41.4 % (37.0-53.0); Hemoglobin 13.8 g/dL (13.5-17.5); IMMATURE GRAN ABSOLUTE AUTO 0.06 K/mm3 (0.00-0.10); IMMATURE GRAN PERCENT AUTO 1 % (0-1); LYMPHOCYTES ABSOLUTE AUTO 2.65 K/mm3 (0.84-5.20); LYMPHOCYTES PERCENT AUTO 22 % (21-46); MONOCYTES ABSOLUTE AUTO 1.41 K/mm3 (0.16-1.47); MONOCYTES PERCENT AUTO 12 % (4-13); Mean Corpuscular HGB 28.1 pg (26.0-34.0); Mean Corpuscular HGB Conc 33.3 g/dL (31.5-36.5); Mean Corpuscular Volume 84 fL (80-100); Mean Platelet Volume 9.7 fL (9.1-12.4); NEUTROPHILS ABSOLUTE AUTO 7.86 K/mm3 (1.96-9.15); NEUTROPHILS PERCENT AUTO 64 % (41-73); Platelet Count 214 K/mm3 (150-400); RDW Coefficient Variation 13.2 % (11.7-14.2); RDW Standard Deviation 40.5 fL (35.1-46.3); Red Blood Cell Count 4.91 M/mm3 (4.30-5.90); White Blood Cell Count 12.23 K/mm3 (4.00-11.30)
[2019-07-26 05:26] LABS: Anion Gap 8 mmol/L (6-16); Blood Urea Nitrogen 16 mg/dL (8-24); Bun/Creatinine Ratio 16.8 (12.0-20.0); CO2, Blood 23 mmol/L (21-32); Calcium, Blood 8.7 mg/dL (8.5-10.1); Chloride, Blood 104 mmol/L (98-108); Creatinine, Blood 0.95 mg/dL (0.60-1.20); Glomerular Filtration Rate >60 (60-); Glucose, Blood 279 mg/dL (70-99); Potassium, Blood 3.8 mmol/L (3.5-5.5); Sodium, Blood 135 mmol/L (136-145)
--- NOTE | 2019-07-26 13:00 | NUR ---
PT ARRIVED TO ROOM 344 FROM ER VIA W/C, PT A/O X4, HE IS ABLE TO STAND, TRANSFER TO BED AND WALK TO BR PRN, PAIN D/T LFT FOOT CELLULITIS IS A LIMITING FACTOR. PT ORIENTED TO ROOM, PHONES AND CALL SYSTEM. CALL THOMPSON IN REACH. WILL CONTINUE TO MONITOR. DR MEJIA CALLED AND INFORMED THAT PT HAS ARRIVED TO ROOM.
--- NOTE | 2019-07-26 18:28 | NUR ---
PT RECEIVED 2 GM IV ROCEPHIN THIS AFTERNOON, LEFT FOOT WOUND CLEANED WITH DAIKINS SOLUTION AND CLEAN DRESSING APPLIED. PT MEDICATED FOR PAIN PER EMAR. NO ACUTE CHANGES NOTED SINCE ARRIVAL TO FLOOR. WILL CONTINUE TO MONITOR.
[2019-07-27 05:08] LABS: BASOPHILS ABSOLUTE AUTO 0.02 K/mm3 (0.00-0.23); BASOPHILS PERCENT AUTO 0 % (0-2); EOSINOPHILS ABSOLUTE AUTO 0.18 K/mm3 (0.00-0.68); EOSINOPHILS PERCENT AUTO 2 % (0-6); Hematocrit 41.8 % (37.0-53.0); IMMATURE GRAN ABSOLUTE AUTO 0.05 K/mm3 (0.00-0.10); IMMATURE GRAN PERCENT AUTO 1 % (0-1); LYMPHOCYTES PERCENT AUTO 19 % (21-46); MONOCYTES ABSOLUTE AUTO 1.26 K/mm3 (0.16-1.47); MONOCYTES PERCENT AUTO 13 % (4-13); Mean Corpuscular HGB 28.5 pg (26.0-34.0); Mean Corpuscular HGB Conc 33.5 g/dL (31.5-36.5); Mean Corpuscular Volume 85 fL (80-100); Mean Platelet Volume 9.7 fL (9.1-12.4); NEUTROPHILS ABSOLUTE AUTO 6.42 K/mm3 (1.96-9.15); NEUTROPHILS PERCENT AUTO 65 % (41-73); Platelet Count 249 K/mm3 (150-400); RDW Coefficient Variation 13.1 % (11.7-14.2); RDW Standard Deviation 40.8 fL (35.1-46.3); Red Blood Cell Count 4.92 M/mm3 (4.30-5.90); White Blood Cell Count 9.83 K/mm3 (4.00-11.30)
[2019-07-27 05:31] LABS: Alanine Aminotransfer (ALT/SGP 14 U/L (12-78); Albumin, Blood 2.7 g/dL (3.4-5.0); Albumin/Globulin Ratio 0.6 (0.8-1.8); Alk Phos 90 U/L (50-136); Anion Gap 7 mmol/L (6-16); Aspartate Aminotrans (AST/SGOT 12 U/L (12-37); Bilirubin, Total 0.4 mg/dL (0.1-1.0); Blood Urea Nitrogen 12 mg/dL (8-24); Bun/Creatinine Ratio 14.3 (12.0-20.0); CO2, Blood 25 mmol/L (21-32); Calcium, Blood 8.9 mg/dL (8.5-10.1); Chloride, Blood 102 mmol/L (98-108); Creatinine, Blood 0.84 mg/dL (0.60-1.20); Globulin, Blood 4.2 g/dL (2.2-4.0); Glomerular Filtration Rate >60 (60-); Glucose, Blood 147 mg/dL (70-99); Magnesium, Blood 1.9 mg/dL (1.6-2.4); Potassium, Blood 3.9 mmol/L (3.5-5.5); Sodium, Blood 134 mmol/L (136-145); Total Protein, Blood 6.9 g/dL (6.4-8.2)
--- NOTE | 2019-07-27 05:35 | NUR ---
Shift summary: Patient slept well overnight. Had no c/o pain. VSS using knee scooter for mobility.
--- NOTE | 2019-07-27 17:58 | NUR ---
SUMMARY- PT A/O INDEPENDANT USING HIS LEG SCOOTER. GOES OUTSIDE TO SMOKE FREQ. HELD BREAKFAST AND HAS BEEN NPO OF ALL FOOD TODAY, LAST CLEAR LIQ AT [address] LOPEZ. DR LOPEZ AT THE BEDSIDE AROUND 1600, AWAITING ANASTHESIA FOR SURGERY. HAS 18G RW. VOIDED 1800 JUST BEFORE SG. BLOOD SUGAR 1650- 134. DRESSING TO LL FOOT CHANGED [address] LOPEZ VIEWED.
--- NOTE | 2019-07-27 18:41 | NUR ---
07/27/19 184 Mojgan Lauren PT ON SCHEDULED ANTIBIOTICS
[2019-07-28 04:23] LABS: BASOPHILS ABSOLUTE AUTO 0.01 K/mm3 (0.00-0.23); BASOPHILS PERCENT AUTO 0 % (0-2); EOSINOPHILS ABSOLUTE AUTO 0.01 K/mm3 (0.00-0.68); EOSINOPHILS PERCENT AUTO 0 % (0-6); Hematocrit 42.4 % (37.0-53.0); Hemoglobin 14.2 g/dL (13.5-17.5); IMMATURE GRAN ABSOLUTE AUTO 0.05 K/mm3 (0.00-0.10); IMMATURE GRAN PERCENT AUTO 0 % (0-1); LYMPHOCYTES ABSOLUTE AUTO 0.87 K/mm3 (0.84-5.20); LYMPHOCYTES PERCENT AUTO 7 % (21-46); MONOCYTES ABSOLUTE AUTO 0.47 K/mm3 (0.16-1.47); MONOCYTES PERCENT AUTO 4 % (4-13); Mean Corpuscular HGB 28.5 pg (26.0-34.0); Mean Corpuscular HGB Conc 33.5 g/dL (31.5-36.5); Mean Corpuscular Volume 85 fL (80-100); Mean Platelet Volume 9.7 fL (9.1-12.4); NEUTROPHILS ABSOLUTE AUTO 11.21 K/mm3 (1.96-9.15); NEUTROPHILS PERCENT AUTO 89 % (41-73); Platelet Count 249 K/mm3 (150-400); RDW Coefficient Variation 12.9 % (11.7-14.2); RDW Standard Deviation 40.3 fL (35.1-46.3); Red Blood Cell Count 4.98 M/mm3 (4.30-5.90); White Blood Cell Count 12.62 K/mm3 (4.00-11.30)
--- NOTE | 2019-07-28 17:56 | NUR ---
PATIENT IS ALERT AND ORIENTED AND COOPERATIVE WITH CARE. COMPLAINTS OF PAIN IN HIS LLE, TREATED PER EMAR. IV ROCEPHIN. PT IS EAGER TO GO HOME TOMORROW. DR. POST ASKED THAT HIS WOUND VAC BE CHANGED BEFORE DISCHARGE. WILL CONTINUE TO MONITOR.
[2019-07-29] MEDS ORDERED: Culturelle1 CAP PO (16:25)
[2019-07-29] MEDS ORDERED: Amoxicillin500 MG PO (16:26)
--- NOTE | 2019-07-29 17:03 | NUR ---
PATIENT DISCHARGED HOME AT 1700
== END 2019-07-29 17:02 | disposition home health service (06) | DRG 854 ==
LOC: ER 20:53 → ERHOLD 23:38 → MEDS 23:38 → ER 23:38 → ERHOLD 07-26 02:00 → MEDS 07-26 12:54 → ERHOLD 07-26 12:54 → MEDS 07-29 17:02
PROVIDERS: Internal Medicine; Orthopaedic Surgery; ADMIT Hospitalist
PROC: 0QBP0ZZ Excision of Left Metatarsal, Open Approach (ICD-10-PCS; principal; 2019-07-27 18:00)
DX: A40.1 Sepsis due to streptococcus, group B (principal); L03.116 Cellulitis of left lower limb; M86.8X7 Other osteomyelitis, ankle and foot; E11.621 Type 2 diabetes mellitus with foot ulcer; E11.69 Type 2 diabetes mellitus with other specified complication; L97.524 Non-pressure chronic ulcer of other part of left foot with necrosis of bone; I10 Essential (primary) hypertension; Z79.4 Long term (current) use of insulin; F17.210 Nicotine dependence, cigarettes, uncomplicated; E11.40 Type 2 diabetes mellitus with diabetic neuropathy, unspecified
CPT/HCPCS: 36415; 80048; 80053; 82947; 83036; 83605; 83735; 85025; 85651; 86140; 87040; 87070; 87075; 87077; 87147; 87186; 87205; 93005; 93010; 96361; 96374; 96375; 99284-25; A9270-GY; J0696; J1100; J1170; J1650; J1885; J2250; J2405; J2704; J3010; J7030; J7050; J7120

== ENCOUNTER 2019-07-30 17:38 | Emergency (ER) | payer OTHER ==
[~2019-07-30] VITALS: Ht 203.2 cm; Wt 127.0 kg
[~2019-07-30 17:38] MED LIST changes: +Amoxicillin500 MG PO; +Culturelle1 CAP PO
== END 2019-07-30 18:45 | disposition home or self-care (01) ==
LOC: ER 17:38
DX: T82.898A Other specified complication of vascular prosthetic devices, implants and grafts, initial encounter (principal); E11.9 Type 2 diabetes mellitus without complications; I10 Essential (primary) hypertension; F17.200 Nicotine dependence, unspecified, uncomplicated; Z79.899 Other long term (current) drug therapy; Z79.4 Long term (current) use of insulin
CPT/HCPCS: 99282; A9270-GY

== ENCOUNTER 2019-08-19 13:28 | Day surgery (SDC) | payer OTHER ==
[~2019-08-19] VITALS: Ht 203.2 cm; Wt 124.6 kg
--- NOTE | 2019-08-19 14:30 | NUR ---
"DAY SURGERY RN | TO OR BOTH DOCTORS AND FORMING MACHINE UPKEEP MECHANIC HAVE SEEN PATIENT. REPORT TO OZZIE GONZALEZ. TO OR."
--- NOTE | 2019-08-19 16:24 | NUR ---
"DAY SURGERY RN | DISCHARGE VSS. A/O. NO ISSUES. DISCHARGE INSTRUCTIONS AND RX GIVEN TO PATIENT WITH FAMILY PRESENT. NO QUESTIONS. TOLERATING PO FLUIDS AND FOOD. DENIES PAIN AND NAUSEA. DENIES DIZZINESS. TAKEN IN WHEELCHAIR BY THIS RN TO FRONT ENTRANCE, IS RIDE HOME."
== END 2019-08-19 23:13 | disposition home or self-care (01) ==
LOC: ORSCMMR 13:28 → ORD 13:28 → ORSCMMR 13:29 → ORD 23:13
PROVIDERS: Orthopaedic Surgery
PROC: 0QBP0ZZ Excision of Left Metatarsal, Open Approach (ICD-10-PCS; principal; 2019-08-19 14:30)
DX: T87.44 Infection of amputation stump, left lower extremity (principal); F17.210 Nicotine dependence, cigarettes, uncomplicated; I10 Essential (primary) hypertension; E11.9 Type 2 diabetes mellitus without complications; Z79.899 Other long term (current) drug therapy; Z79.4 Long term (current) use of insulin
CPT/HCPCS: 82947; 87070; 87071; 87075; 87077; 87186; 87205; J0690; J2250; J3010; J3370; J7120

== ENCOUNTER → 2020-03-01 | Outpatient (CLI) | payer OTHER | END | disposition home or self-care (01) | LOC: LAB 10:00 → LAB SHORT 10:00 | DX: L89.892 Pressure ulcer of other site, stage 2 (principal) | CPT/HCPCS: 87070; 87205 ==

== ENCOUNTER 2020-06-01 16:58 | Inpatient (IN) | payer OTHER ==
[~2020-06-01] VITALS: Ht 200.7 cm; Wt 117.5 kg
[2020-06-01 17:47] LABS: BASOPHILS ABSOLUTE AUTO 0.06 K/mm3 (0.00-0.23); BASOPHILS PERCENT AUTO 0 % (0-2); EOSINOPHILS PERCENT AUTO 1 % (0-6); Hemoglobin 14.5 g/dL (13.5-17.5); IMMATURE GRAN ABSOLUTE AUTO 0.15 K/mm3 (0.00-0.10); IMMATURE GRAN PERCENT AUTO 1 % (0-1); LYMPHOCYTES ABSOLUTE AUTO 2.64 K/mm3 (0.84-5.20); LYMPHOCYTES PERCENT AUTO 11 % (21-46); MONOCYTES ABSOLUTE AUTO 2.03 K/mm3 (0.16-1.47); MONOCYTES PERCENT AUTO 9 % (4-13); Mean Corpuscular HGB Conc 33.7 g/dL (31.5-36.5); Mean Corpuscular Volume 83 fL (80-100); Mean Platelet Volume 9.3 fL (9.1-12.4); NEUTROPHILS ABSOLUTE AUTO 18.09 K/mm3 (1.96-9.15); NEUTROPHILS PERCENT AUTO 78 % (41-73); Platelet Count 350 K/mm3 (150-400); RDW Coefficient Variation 13.2 % (11.7-14.2); Red Blood Cell Count 5.17 M/mm3 (4.30-5.90); White Blood Cell Count 23.17 K/mm3 (4.00-11.30)
[2020-06-01] MEDS ORDERED: LINE600 PO (18:07)
[2020-06-01] MEDS ORDERED: Acarbose25 MG PO (18:07)
[2020-06-01] MEDS ORDERED: ATOR20 PO (18:08)
[2020-06-01] MEDS ORDERED: METO50ER PO (18:08)
[2020-06-01] MEDS ORDERED: GLUCOPHAGE1000 M1 PO (18:08)
[2020-06-01 18:10] LABS: Alanine Aminotransfer (ALT/SGP 18 U/L (12-78); Albumin, Blood 2.6 g/dL (3.4-5.0); Albumin/Globulin Ratio 0.5 (0.8-1.8); Alk Phos 165 U/L (50-136); Anion Gap 11 mmol/L (6-16); Aspartate Aminotrans (AST/SGOT 12 U/L (12-37); Bilirubin, Total 0.4 mg/dL (0.1-1.0); Blood Urea Nitrogen 16 mg/dL (8-24); Bun/Creatinine Ratio 17.2 (12.0-20.0); CO2, Blood 21 mmol/L (21-32); Calcium, Blood 9.2 mg/dL (8.5-10.1); Chloride, Blood 99 mmol/L (98-108); Creatinine, Blood 0.93 mg/dL (0.60-1.20); Globulin, Blood 5.2 g/dL (2.2-4.0); Glomerular Filtration Rate >60 (60-); Glucose, Blood 283 mg/dL (70-99); Potassium, Blood 3.7 mmol/L (3.5-5.5); Sodium, Blood 131 mmol/L (136-145); Total Protein, Blood 7.8 g/dL (6.4-8.2)
[2020-06-02 04:27] LABS: BASOPHILS ABSOLUTE AUTO 0.04 K/mm3 (0.00-0.23); BASOPHILS PERCENT AUTO 0 % (0-2); EOSINOPHILS PERCENT AUTO 2 % (0-6); Hematocrit 37.4 % (37.0-53.0); Hemoglobin 12.4 g/dL (13.5-17.5); IMMATURE GRAN PERCENT AUTO 1 % (0-1); LYMPHOCYTES ABSOLUTE AUTO 2.83 K/mm3 (0.84-5.20); LYMPHOCYTES PERCENT AUTO 17 % (21-46); MONOCYTES ABSOLUTE AUTO 1.71 K/mm3 (0.16-1.47); MONOCYTES PERCENT AUTO 10 % (4-13); Mean Corpuscular HGB 27.7 pg (26.0-34.0); Mean Corpuscular HGB Conc 33.2 g/dL (31.5-36.5); Mean Corpuscular Volume 84 fL (80-100); Mean Platelet Volume 9.3 fL (9.1-12.4); NEUTROPHILS ABSOLUTE AUTO 11.64 K/mm3 (1.96-9.15); NEUTROPHILS PERCENT AUTO 70 % (41-73); Platelet Count 299 K/mm3 (150-400); RDW Coefficient Variation 13.2 % (11.7-14.2); RDW Standard Deviation 40.6 fL (35.1-46.3); Red Blood Cell Count 4.47 M/mm3 (4.30-5.90); White Blood Cell Count 16.62 K/mm3 (4.00-11.30)
[2020-06-02 04:46] LABS: Alanine Aminotransfer (ALT/SGP 15 U/L (12-78); Albumin, Blood 2.2 g/dL (3.4-5.0); Albumin/Globulin Ratio 0.5 (0.8-1.8); Alk Phos 133 U/L (50-136); Anion Gap 7 mmol/L (6-16); Aspartate Aminotrans (AST/SGOT 8 U/L (12-37); Bilirubin, Total 0.4 mg/dL (0.1-1.0); Blood Urea Nitrogen 15 mg/dL (8-24); Bun/Creatinine Ratio 17.3 (12.0-20.0); CO2, Blood 23 mmol/L (21-32); Calcium, Blood 8.9 mg/dL (8.5-10.1); Chloride, Blood 105 mmol/L (98-108); Creatinine, Blood 0.87 mg/dL (0.60-1.20); Globulin, Blood 4.4 g/dL (2.2-4.0); Glomerular Filtration Rate >60 (60-); Glucose, Blood 235 mg/dL (70-99); Potassium, Blood 3.9 mmol/L (3.5-5.5); Sodium, Blood 135 mmol/L (136-145); Total Protein, Blood 6.6 g/dL (6.4-8.2)
--- NOTE | 2020-06-02 05:25 | NUR ---
SHIFT SUMMARY PT TRANSFERRED FROM ED AT 2240. PT HAS DIME SIZED PRESSURE ULCER ON BOTTOM OF R FOOT. PT HAS PARTIAL LLE AMPUTATION BELOW ANKLE. PT HAS QUARTER SIZED PRESSURE ULCER ON THE LEFT ANKLE. PT HAS PITTING EDEMA OF THE DORSUM AREA OF THE R FOOT. THE DORSUM AREA OF THE R FOOT IS RED AND WARM TO THE TOUCH. THE FOURTH DIGIT ON THE R FOOT IS DARK IN COLOR. PT REPORTS SEVERE PAIN IN BLE, MEDICATION GIVEN PER EMAR. PT REPORTS PAIN RELIEF. PT REPORTS THE ULCERS DEVELOPED 2-3 MONTHS AGO. MRI SCHEDULED FOR TODAY. VS STABLE. PT REPORTS NO CHEST PAIN OR PRESSURE. WILL CONTINUT TO MONITOR UNTIL SHIFT REPORT GIVEN TO DAYSHIFT RN.
--- NOTE | 2020-06-02 09:49 | NUR ---
Spoke with DR. Olivarez on the phone, requested podiatry consultation from Dr. Brown. It was accepted.
--- NOTE | 2020-06-02 17:42 | NUR ---
RECIEVED TELEPHONE REPORT FROM STAGING TECHNICIAN- DR MCCLURE CAME TO SEE THE PT AND WRAPPED THE WOUND AND TOLD STAGING TECHNICIAN NO CHANGE NEEDED UNTIL THURSDAY. PER REPORT PT IS A POORLY MANAGED DIABETIC, ISOLATION FOR MRSA, COMING TO MED FLOOR "MED NO TELE" STATUS. PLAN IS FOR THE PT TO DISCHARGE HOME TOMORROW. AWAITING PT ARRIVAL ON MEDICAL FLOOR.
--- NOTE | 2020-06-02 18:06 | NUR ---
PCU DAYSHIFT SUMMARY AND TRANSFER TO MEDICAL FLOOR PATIENT ALERT AND ORIENTE X4. RESP E/U ON ROOM AIR. VSS. MED NO TELE. PATIENT HAS ON GOING PAIN IN RIGHT LOWER EXTREMETY - RIGHT FOOT SWOLLEN WITH VASCULAR ULCER NOTED. PODIETRIST MD MCCLURE TO ROOM THIS SHIFT - CLEANED AND REDRESSED WOUND - VERBAL LEAVE WRAP IN PLACE UNTIL THURSDAY. PATIENT PROVIDES SELF CARE IN ROOM. NO ACUTE CHANGE T/O SHIFT. REPORTED TO THEA MEDICAL FLOOR RN. PATIENT LEFT TO MEDICAL FLOOR ROOM 360 WITH BELONGINGS VIA WHEEL CHAIR.
[2020-06-02 20:22] LABS: Vancomycin, Trough 8.5 ug/mL (5.0-10.0)
--- NOTE | 2020-06-03 03:57 | NUR ---
FUSE COILER SUMMARY PT HAS APPEARED TO SLEEP T/O SHIFT. USES CALL LIGHT APPROPRIATELY AND COOPERATIVE WITH CARE. NO ACUTE CHANGES OR SIGNS OF DISTRESS. BREATHING IS UNLABORED. VS STABLE. BED IN LOWEST POSTION WITH CALL LIGHT IN REACH. WILL CONTINUE TO MONITOR AND REPORT TO ONCOMING RN.
[2020-06-03 05:00] LABS: BASOPHILS ABSOLUTE AUTO 0.03 K/mm3 (0.00-0.23); BASOPHILS PERCENT AUTO 0 % (0-2); EOSINOPHILS ABSOLUTE AUTO 0.25 K/mm3 (0.00-0.68); EOSINOPHILS PERCENT AUTO 2 % (0-6); Hematocrit 36.7 % (37.0-53.0); Hemoglobin 12.1 g/dL (13.5-17.5); IMMATURE GRAN ABSOLUTE AUTO 0.08 K/mm3 (0.00-0.10); IMMATURE GRAN PERCENT AUTO 1 % (0-1); LYMPHOCYTES ABSOLUTE AUTO 2.73 K/mm3 (0.84-5.20); LYMPHOCYTES PERCENT AUTO 21 % (21-46); MONOCYTES ABSOLUTE AUTO 1.44 K/mm3 (0.16-1.47); MONOCYTES PERCENT AUTO 11 % (4-13); Mean Corpuscular HGB 27.7 pg (26.0-34.0); Mean Corpuscular Volume 84 fL (80-100); Mean Platelet Volume 9.2 fL (9.1-12.4); NEUTROPHILS ABSOLUTE AUTO 8.38 K/mm3 (1.96-9.15); NEUTROPHILS PERCENT AUTO 65 % (41-73); Platelet Count 264 K/mm3 (150-400); RDW Coefficient Variation 13.1 % (11.7-14.2); RDW Standard Deviation 40.4 fL (35.1-46.3); Red Blood Cell Count 4.37 M/mm3 (4.30-5.90); White Blood Cell Count 12.91 K/mm3 (4.00-11.30)
--- NOTE | 2020-06-03 17:32 | NUR ---
ALERT. ORIENTED. XTRA DRESSING TO FOOT TAKEN OFF FOR ULTRASOUND BEING DOWN AT THIS TIME TO EVALUATE CIRCULATION THIRD TOE RT FOOT IS PURPLE. ORDERED EARLIER IN DAY AND ULTRASOUND WAS UNABLE TO DO ONCE DUE TO RN DOING POWERGLIDE AND THEN AGAIN DUE TO PATIENT BEING OFF THE FLOOR. MEDICATED FOR PAIN W/P.O. MEDS. DENIES ANY NAUSEA. TM
--- NOTE | 2020-06-03 18:19 | NUR ---
PATIENT WAS OUTSIDE FOR ABOUT AN HOUR. HAD ULTRASOUND UPON RETURN. AFTER ULTRASOUND RN ATTEMPT TO HYDRAULIC PRESS SERVICER ANTIBIOTIC AND IV WOULD NOT WORK. UPON CLOSE INSPECTION IV CATHETER LOOKS KINKED. SECURITY OPERATIONS ANALYST NOTIFIED TO SEE IF SHE CAN FIX. XTRA DRESSING APPLIED TO RT FOOT.
--- NOTE | 2020-06-03 18:55 | NUR ---
PATIENT WISHES TO HAVE HIS OWN WHEELCHAIR IN ROOM. ADVISED PATIENT AND SON TO DISINFECT W/C FIRST BEFORE BRINGING UP HERE. VERBALIZE UNDERSTANDING.
--- NOTE | 2020-06-04 08:21 | NUR ---
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 He has blackened rt toe & is aware. PT had I & D Sat but had no wound drainage from postop dressing. PT has long periods of verbalization, with minimal ability to stop talking. Spouse in this AM supportive. Medicated several times for acute rt foot pain with helpful effect.
[2020-06-04 09:36] LABS: Vancomycin, Trough 12.3 ug/mL (5.0-10.0)
--- NOTE | 2020-06-04 18:49 | NUR ---
SHIFT SUMMARY- PT IS A/O, PLESANT AND COOPERATIVE. HE IS EATING AND DRINKING WELL. HE IS RECIEVING IV ABX. HIS SECOND TOE IS BLACKENED AND DR. GILLESPIE CONSULTED. POSSIBLE REVASCULARIZATION TOMORROW. DR. MCCLURE RECHECKED WOUND THIS EVENING. PT HAD A POSITIVE BLOOD CULTURE OF CRE.
--- NOTE | 2020-06-05 06:01 | NUR ---
9 year old MAle with rt foot cellulitis had I & D & continues on antibiotics to treat. He had abscess culture grow out CRE & continues in isolation. VSS. Pain controlled on oral pain meds. RT UE poerglide patent draw blood for lab without difficulty. Providing handouts on CRE, preventing MDRO & contact precautions. PT has procedure to attempt revascularization of RT le due to infection with purple digit x 1. DR Meyer rx NPO after breakfast & planning to add to surgery schedule.
--- NOTE | 2020-06-05 17:07 | NUR ---
SUMMARY PT HAD BF THIS AM THEN HAS BEEN NPO T/O DAY FOR REVASC PROCEDURE OF R LEG w DR GILLESPIE. HE IS A/O X4, PLEASANT AFFECT. HE IS ABLE TO GET UP W/O ASSIST, GET TO W/C & GO OUT OR TO BR IND. HE HAD A SHOWER TODAY. VSS. HRT CTR RN STATE DR WAGNER PROCEDURES HAVE BEEN DELAYED TODAY HOWEVER PT IS STILL ON SCHEDULE FOR THIS AFTERNOON, TIME UNKNOWN @ THIS TIME, PT INFORMED. REPORT CALLED TO KIMMIE PCU 2 RN WHO WILL RECIEVE PT FOLLOWING PROCEDURE.
--- NOTE | 2020-06-05 19:31 | NUR ---
DR GILLESPIE UP TO SEE, CONSENT FOR PROCEDURE SIGNED. PT OUT FOR REVASC PROCEDURE. BELONGINGS GATHERED, MANAGER BILINGUAL WILL MOVE TO PCU 2.
--- NOTE | 2020-06-05 19:41 | NUR ---
1800 CBG 154. MED S/S INSULIN HELD R/T NPO STATUS @ PT REQUEST.
[2020-06-06 05:36] LABS: BASOPHILS ABSOLUTE AUTO 0.05 K/mm3 (0.00-0.23); BASOPHILS PERCENT AUTO 0 % (0-2); EOSINOPHILS ABSOLUTE AUTO 0.42 K/mm3 (0.00-0.68); EOSINOPHILS PERCENT AUTO 3 % (0-6); Hematocrit 37.5 % (37.0-53.0); Hemoglobin 12.3 g/dL (13.5-17.5); IMMATURE GRAN ABSOLUTE AUTO 0.14 K/mm3 (0.00-0.10); IMMATURE GRAN PERCENT AUTO 1 % (0-1); LYMPHOCYTES ABSOLUTE AUTO 3.44 K/mm3 (0.84-5.20); LYMPHOCYTES PERCENT AUTO 27 % (21-46); MONOCYTES ABSOLUTE AUTO 1.64 K/mm3 (0.16-1.47); MONOCYTES PERCENT AUTO 13 % (4-13); Mean Corpuscular HGB 27.9 pg (26.0-34.0); Mean Corpuscular HGB Conc 32.8 g/dL (31.5-36.5); Mean Corpuscular Volume 85 fL (80-100); Mean Platelet Volume 9.1 fL (9.1-12.4); NEUTROPHILS ABSOLUTE AUTO 7.07 K/mm3 (1.96-9.15); NEUTROPHILS PERCENT AUTO 55 % (41-73); Platelet Count 350 K/mm3 (150-400); RDW Coefficient Variation 13.1 % (11.7-14.2); RDW Standard Deviation 40.3 fL (35.1-46.3); Red Blood Cell Count 4.41 M/mm3 (4.30-5.90); White Blood Cell Count 12.76 K/mm3 (4.00-11.30)
[2020-06-06 06:00] LABS: Anion Gap 4 mmol/L (6-16); Blood Urea Nitrogen 15 mg/dL (8-24); Bun/Creatinine Ratio 15.3 (12.0-20.0); CO2, Blood 28 mmol/L (21-32); Chloride, Blood 102 mmol/L (98-108); Creatinine, Blood 0.98 mg/dL (0.60-1.20); Glomerular Filtration Rate >60 (60-); Glucose, Blood 172 mg/dL (70-99); Sodium, Blood 134 mmol/L (136-145)
--- NOTE | 2020-06-06 06:28 | NUR ---
PATIENT ADMITTED TO PCU FROM THE FANCY [facility]ITCHER. TRANSPARENT DRESSING IS ON THE LEFT EXTREMITY. CATH SITE IS WNL, CLEAN AND INTACT. RIGHT LOWER EXTREMITY ULCER IS COVERED BY DRESSING WHICH IS INTACT WITH MINIMAL SEROSANGUINOUS DRAINAGE. HE COMPLAINS OF GENERALIZED PAIN WHICH IS RELIEVED BY OXYCODONE. VSS, HE IS PEEING ADEQUATELY AND IS ABLE TO AMBULATE INDEPENDENTLY. HE IS ALLOWED FOOD AND WATER POST CATH, CONFIRMED WITH JOVON SAHU BANANA EXPERT. HE IS ANTICIPATING DISCHARGE EAGERLY AND SAYS THAT HE IS FEELING GOOD TO GO HOME. CALL LIGHT WITHIN REACH, WILL CONTINUE TO MONITOR UNTIL END OF SHIFT
--- NOTE | 2020-06-06 09:36 | NUR ---
ASSUMED CARE: PT ALERT AND ORIENTED, VITALS STABLE ON ROOMAIR, AFEBRILE. LEFT GROIN POST CATH SITE WITH TEGADERM DRESSING REMAINED CDI. LEFT ANKLE AND RIGHT FOOT DRESSING INTACT OFFERED TO CHANGE HE DRESSING THIS MORNING PT REFUSED WOULD LIKE TO WAIT FOR THE DOCTOR AND IS ANXIOUS AND EAGER TO GO HOME TODAY. PT AMBULATED IN THE ROOM INDEPENDENTLY, TOOK OXYCODONE 10 MG FOR 8/10 PAIN ON THE RIGHT LEG. DR DRAPER IN THE ROOM AT THIS TIME DISCUSSING POSS DISCHARGE TODAY. NO OTHER ISSUES/ACUTE CHANGE, WILL MONITOR
[2020-06-06] MEDS ORDERED: CIPR500 PO (10:35)
[2020-06-06] MEDS ORDERED: ASPI81CH PO (10:36)
[2020-06-06] MEDS ORDERED: ATOR20 PO (10:37)
[2020-06-06] MEDS ORDERED: VISBIOME PROBIOTIC PO (10:39)
--- NOTE | 2020-06-06 11:28 | NUR ---
PT DISCHARGED TO HOME TODAY WITH DISCHARGE ORDERS. MEDICATIONS SENT TO [facility] IN [place]. PT WAS INSTRUCTED WITH NEW MEDICATIONS AND FOLLOW-UP APPT WITH PCP AND FOOT/ORTHO DR. PT REFUSED TO GET WOUND DRESSING CHANGED PRIOR TO DISCHARGE PT STATED HE HAS SUPPLIES AT HOME. NO OTHER CONCERN OR ISSUES REPORTED PRIOR TO DISCHARGE. PT ACCOMPANIED FOR TRANSPORT VIA PERSONAL WHEELCHAIR.
== END 2020-06-06 11:18 | disposition home or self-care (01) | DRG 854 ==
LOC: ER 16:58 → PCU 20:13 → MEDS 20:13 → ERHOLD 20:13 → PCU 21:58 → MEDS 06-02 17:57 → PCU 06-05 18:14
PROVIDERS: Emergency Medicine; Hospitalist; Internal Medicine; Physician Assistant; ADMIT Internal Medicine
PROC: B41DYZZ Fluoroscopy of Aorta and Bilateral Lower Extremity Arteries using Other Contrast (ICD-10-PCS; principal; 2020-06-05)
PROC: 04CM3ZZ Extirpation of Matter from Right Popliteal Artery, Percutaneous Approach (ICD-10-PCS; 2020-06-05)
PROC: 047M3ZZ Dilation of Right Popliteal Artery, Percutaneous Approach (ICD-10-PCS; 2020-06-05)
PROC: 047R3ZZ Dilation of Right Posterior Tibial Artery, Percutaneous Approach (ICD-10-PCS; 2020-06-05)
PROC: 0JDQ0ZZ Extraction of Right Foot Subcutaneous Tissue and Fascia, Open Approach (ICD-10-PCS; 2020-06-05)
PROC: 04CR3ZZ Extirpation of Matter from Right Posterior Tibial Artery, Percutaneous Approach (ICD-10-PCS; 2020-06-05)
DX: A41.81 Sepsis due to Enterococcus (principal); L03.115 Cellulitis of right lower limb; E87.1 Hypo-osmolality and hyponatremia; L02.611 Cutaneous abscess of right foot; Z16.19 Resistance to other specified beta lactam antibiotics; E11.51 Type 2 diabetes mellitus with diabetic peripheral angiopathy without gangrene; I10 Essential (primary) hypertension; F17.210 Nicotine dependence, cigarettes, uncomplicated; Z89.432 Acquired absence of left foot; E11.42 Type 2 diabetes mellitus with diabetic polyneuropathy; Z79.4 Long term (current) use of insulin; E11.621 Type 2 diabetes mellitus with foot ulcer; L97.512 Non-pressure chronic ulcer of other part of right foot with fat layer exposed
CPT/HCPCS: 36415; 37229; 37232; 37233; 73620; 75625; 75716; 75774; 80048; 80053; 80202; 82565; 82947; 83605; 85025; 85347; 87040; 87070; 87075; 87077; 87186; 87205; 93005; 93010; 93926; 96361; 96374; 96375; 99152; 99153; 99285-25; A9270-GY; C1714; C1725; C1760; C1769; C1887; C1894; J0295; J0696; J1170; J1644; J1650; J2250; J2405; J3010; J3370; J7030; J7040; J7050; Q9967

== ENCOUNTER 2020-07-05 16:10 | Inpatient (IN) | payer OTHER ==
[~2020-07-05] VITALS: Ht 198.1 cm; Wt 117.6 kg
[~2020-07-05 16:10] MED LIST changes: +ACAR50 PO; +ASPI81CH PO; +ATOR20 PO; +Acarbose25 MG PO; +CIPR500 PO; +GLUCOPHAGE1000 M1 PO; +LINE600 PO; +VISBIOME PROBIOTIC PO
--- NOTE | 2020-07-06 13:50 | NUR ---
Ambulatory in Day Surgery History, Chart, Medications and Allergies reviewed before start of procedure.Lungs clear T/O to Auscultation. Patient confirms NPO status and agrees with scheduled surgery. Pre-Op teaching done. Pt verbalizes understanding. PT LATE FOR PROCEDURE DR POST TALKING TO PT IN WAITING ROOM THEN BACK TO DAY SURGERY.
--- NOTE | 2020-07-06 14:45 | NUR ---
VANCOMYCIN BROUGHT TO OR LOADED ON PUMP
--- NOTE | 2020-07-06 14:46 | NUR ---
9165 IGNACIO ASTHMAS NOTIFIED OF CONTACT ISOLATION INFORMATION OBTAINED AAFTER PT WENT TO OR
--- NOTE | 2020-07-06 16:50 | NUR ---
PT ARRIVED TO ROOM 224 FORM PACU S/P R METATARSAL AMP WITH WOUND VAC PT ABLE TO TRANSFER OVER INTO THE BED W/O ASSIST PT REPORTS PAIN 10/21 ASKING FOR SOMETHING TO EAT NO NV ORIENTED TO ROOM LAYOUT
--- NOTE | 2020-07-06 21:31 | NUR ---
CONTACTED SLUBBER TENDER PROVIDER TO REPORT BLOOD SUGAR OF 333. ORDER OBTAINED FROM JOVON FOR A ONE TIME DOSE OF INSULIN PER THE PT'S SLIDING SCALE.
[2020-07-07 04:38] LABS: BASOPHILS ABSOLUTE AUTO 0.03 K/mm3 (0.00-0.23); BASOPHILS PERCENT AUTO 0 % (0-2); EOSINOPHILS ABSOLUTE AUTO 0.01 K/mm3 (0.00-0.68); EOSINOPHILS PERCENT AUTO 0 % (0-6); Hematocrit 36.9 % (37.0-53.0); IMMATURE GRAN ABSOLUTE AUTO 0.08 K/mm3 (0.00-0.10); IMMATURE GRAN PERCENT AUTO 1 % (0-1); LYMPHOCYTES ABSOLUTE AUTO 1.44 K/mm3 (0.84-5.20); LYMPHOCYTES PERCENT AUTO 9 % (21-46); MONOCYTES PERCENT AUTO 7 % (4-13); Mean Corpuscular HGB 27.1 pg (26.0-34.0); Mean Corpuscular HGB Conc 32.5 g/dL (31.5-36.5); Mean Corpuscular Volume 83 fL (80-100); Mean Platelet Volume 9.1 fL (9.1-12.4); NEUTROPHILS ABSOLUTE AUTO 12.65 K/mm3 (1.96-9.15); NEUTROPHILS PERCENT AUTO 83 % (41-73); Platelet Count 235 K/mm3 (150-400); RDW Standard Deviation 42.5 fL (35.1-46.3); Red Blood Cell Count 4.43 M/mm3 (4.30-5.90); White Blood Cell Count 15.31 K/mm3 (4.00-11.30)
--- NOTE | 2020-07-07 05:33 | NUR ---
SHIFT SUMMARY: YUSEF IS A&OX4. VSS, NO ACUTE EVENTS OVERNIGHT. WOUND VAC TO RLE PATENT. CLEAR DRESSING CHANGED AT BEGINNING OF SHIFT D/T LEAKING; HAS REMAINED PATENT SINCE. HE IS TOLERATING PO INTAKE WELL. HE REPORTS ADEQUATE PAIN CONTROL WITH 2 TABLETS OF NORCO 5/325 MG. HE IS URINATING WITHOUT DIFFICULTY AND HAS HAD A BM THIS SHIFT. HE WAS EDUCATED ON NWB STATUS AND FOLLOWING A "STRICT ADA" DIET. HE IS LYING IN BED WITH HIS CALL LIGHT IN REACH. WILL REPORT TO DAY SHIFT RN.
--- NOTE | 2020-07-07 15:38 | NUR ---
SHIFT SUMMARY PT A&OX4, VSS, CBGS MED SS. POD1 R FOOT TMA, NWB, WOUND VAC WNL. PAIN MANAGED WITH 10 MG NORCO PRN. SHEY PO, DENIES N&V. VOIDING WELL, URINAL AT BEDSIDE. WILL REPORT TO ONCOMING NOC RN.
--- NOTE | 2020-07-07 20:30 | NUR ---
PATIENT TRAVELED OUTSIDE WITH HIS WHEELCHAIR. HE IS INDEPENDENT AND USES ARMS TO MANUVER W/C, HE TAKES THE WOUND VAC WITH HIM. PATIENT IS COOPERATIVE WITH ALL CARE. USES URINAL TO VOID. PATIENT HAS GOOD PULSES TO THE DORSALIS PEDIS BOTH FEET. WOUND VAC IS DECOMPRESSED AND DRAINING SEROSANGUENOUS FLUID. CALL LIGHT IN REACH.
[2020-07-07 20:46] LABS: Vancomycin, Trough 11.2 ug/mL (5.0-10.0)
--- NOTE | 2020-07-08 05:44 | NUR ---
PATIENT HAS BEE ABLE TO SLEEP SINCE MIDNIGHT, WAKING TO VOID AND FOR SMALL REQUESTS. EXTERNAL MALEOUS ON LEFT FOOT WITH A PRESSURE ULCER THAT IS COVERED WITH GAUZE AND TAPE. THE GAUZE WITH A SCANT AMOUNT OF YELLOW/ PINK DRAINAGE WAS STICKING TO THE EPITHELIALIZED TISSE. MEPITEL ONE WAS PLACED OVER THE WOUND, WITH GAUZE AND TAPE HOLDING THE GAUZE. WOUND VAC DRESSING TO THE RT FOOT CONTINUES TO DRAIN AND IS COMPRESSED. NO ACUTE CHANGES. CALL LIGHT IN REACH.
[2020-07-08] MEDS ORDERED: ASPI81CH PO (12:34)
[2020-07-08] MEDS ORDERED: BACTRIM DS TAB1 EAC3 PO (12:35)
--- NOTE | 2020-07-08 13:43 | NUR ---
DISCHARGE SUMMARY PT A&OX4, VSS, LEFT FLOOR VIA HIS OWN WC, WITH ALL PERSONAL POSSESSIONS, WITH HOME WOUND VAC APPLIED, AND ALL WOUND VAC SUPPLIES, SIGNED DOCS PUT ON CHART. DC INSTRUCTIONS PROVIDED. PT REP UNDERSTANDING THOSE INSTRUCTIONS INCLUDING FU WITH DR LOPEZ 07/11, FU WITH PCP RE BLOOD GLUCOSE MGMT, NWB/MINIMIZE ACTIVITY, BACTRIM/ASA FAXED TO [facility], SCRIPT NORCO PROVIDED TO PT. IV DC'D.
== END 2020-07-08 13:32 | disposition home or self-care (01) | DRG 617 ==
LOC: PRE IP 07-06 12:30 → SURS 07-06 12:53
PROVIDERS: ADMIT Orthopaedic Surgery
PROC: 0Y6M0ZB Detachment at Right Foot, Partial 2nd Ray, Open Approach (ICD-10-PCS; 2020-07-06)
PROC: 0Y6M0ZC Detachment at Right Foot, Partial 3rd Ray, Open Approach (ICD-10-PCS; 2020-07-06)
PROC: 0Y6M0ZD Detachment at Right Foot, Partial 4th Ray, Open Approach (ICD-10-PCS; 2020-07-06)
PROC: 0Y6M0ZF Detachment at Right Foot, Partial 5th Ray, Open Approach (ICD-10-PCS; 2020-07-06)
PROC: 0Y6M0Z9 Detachment at Right Foot, Partial 1st Ray, Open Approach (ICD-10-PCS; principal; 2020-07-06 12:30)
DX: E11.69 Type 2 diabetes mellitus with other specified complication (principal); M86.9 Osteomyelitis, unspecified; I10 Essential (primary) hypertension; Z20.828 Contact with and (suspected) exposure to other viral communicable diseases; E11.51 Type 2 diabetes mellitus with diabetic peripheral angiopathy without gangrene; E11.610 Type 2 diabetes mellitus with diabetic neuropathic arthropathy; E11.42 Type 2 diabetes mellitus with diabetic polyneuropathy; Z86.14 Personal history of Methicillin resistant Staphylococcus aureus infection; Z89.432 Acquired absence of left foot; Z79.84 Long term (current) use of oral hypoglycemic drugs; Z87.891 Personal history of nicotine dependence
CPT/HCPCS: 36415; 80202; 82565; 82947; 85025; 87071; 87075; 87205; A9270-GY; J0690; J1100; J1650; J2250; J2370; J2405; J2704; J3010; J3370; J7050; J7120

== ENCOUNTER 2020-12-18 00:27 | Day surgery (SDC) | payer OTHER ==
[~2020-12-18 00:27] MED LIST changes: +BACTRIM DS TAB1 EAC3 PO
== END 2020-12-18 22:52 | disposition home or self-care (01) ==
LOC: WOUND 00:27
DX: E11.621 Type 2 diabetes mellitus with foot ulcer (principal); L97.514 Non-pressure chronic ulcer of other part of right foot with necrosis of bone; L97.302 Non-pressure chronic ulcer of unspecified ankle with fat layer exposed; E11.65 Type 2 diabetes mellitus with hyperglycemia; F17.210 Nicotine dependence, cigarettes, uncomplicated; Z89.431 Acquired absence of right foot
CPT/HCPCS: 87071; 87075; 87205; 88304; 88307; 88311; A9270; G0463

== ENCOUNTER 2020-12-21 12:27 | Day surgery (SDC) | payer OTHER ==
[~2020-12-21] VITALS: Ht 198.1 cm; Wt 111.2 kg
[2020-12-21] MEDS ORDERED: CLIN300 (13:27)
--- NOTE | 2020-12-21 17:16 | NUR ---
12/21/20 1716 Shanell Mcclendon LATE ENTRY- PT BROUGHT DIRECTLY TO STEP DOWN ROOM 7 FOR PAR. UPON ARRIVING TO STEP DOWN PT'S VSS. PT PLACED ON 15L SUPPLIMENTAL O2 VIA NONREBREATHER. PT WAS COUGHING UP CLEAR MUCUS, SUCTION USED NEEDED. PT HAD RECIEVED 1500 OF LR IN THE OR. PT NEEDED PHENYEPHRINE DRIP DURING HIS PROCEDURE TODAY FOR HYPOTENSION PER DR HERNANDEZ. WHILE IN STEP DOWN PT'S BP DROPPED TO 92/51 AT 1615, DR HERNANDEZ ORDERED AN ADDITIONAL 500ML BOLUS OF LR TO BE ADMINISTERED. DR HERNANDEZ AND DR LOPEZ REQUESTED THE PT BE ADMITTED TO THE HOSPIAL FOR ADDITIONAL OBSERVATION. NURSING ACCOUNTS RECEIVABLE ANALYST NOTIFIED. DR VU CAME TO ASSESS THE PT AT THE [facility] AT APPROXIMATELY 1615. ROOM IN PCU OBTAINED PER DR BENITES ORDERS. PT TRANSFERRED TO PCU8 VIA [place] BY RN AND MA AT 1700. REPORT GIVEN TO THONY GONZALEZ. PT SENT TO PCU WITH PERSONAL BELONGINGS, WOUND VAC/SUPPLIES, PERSONAL WHEELCHAIR.
[2020-12-22] MEDS ORDERED: LORCET 5-325 M1 EACH PO (11:52)
== END 2020-12-21 17:00 | disposition home or self-care (01) ==
LOC: ORSCSDS 12:27
PROVIDERS: Orthopaedic Surgery
PROC: 0QBN0ZZ Excision of Right Metatarsal, Open Approach (ICD-10-PCS; principal; 2020-12-21 13:45)
DX: M86.172 Other acute osteomyelitis, left ankle and foot (principal); I10 Essential (primary) hypertension; E11.9 Type 2 diabetes mellitus without complications; Z87.891 Personal history of nicotine dependence; Z79.84 Long term (current) use of oral hypoglycemic drugs; Z79.899 Other long term (current) drug therapy
CPT/HCPCS: 82947; 87071; 87075; 87102; 87205; 88305; 88311; A9270; J0690; J2250; J2370; J2405; J2704; J3010; J3370; J7120

== ENCOUNTER 2020-12-21 17:12 | Observation (INO) | payer OTHER ==
[~2020-12-21] VITALS: Ht 198.1 cm; Wt 112.9 kg
[~2020-12-21 17:12] MED LIST changes: +CLIN300
[2020-12-21 18:24] LABS: Hemoglobin 10.1 g/dL (13.5-17.5); Mean Corpuscular HGB 24.5 pg (26.0-34.0); Mean Corpuscular HGB Conc 32.6 g/dL (31.5-36.5); Mean Corpuscular Volume 75 fL (80-100); Mean Platelet Volume 8.9 fL (9.1-12.4); Platelet Count 415 K/mm3 (150-400); RDW Coefficient Variation 14.9 % (11.7-14.2); RDW Standard Deviation 40.2 fL (35.1-46.3); Red Blood Cell Count 4.13 M/mm3 (4.30-5.90); White Blood Cell Count 11.78 K/mm3 (4.00-11.30)
--- NOTE | 2020-12-21 18:38 | NUR ---
ADMIT TO PCU: PT ADMIT TO PCU FROM [facility] AT 1700. PT ALERT AND ORIENTED X4. TRANSFERRED SELF FROM [facility] TO BED. ON ROOM AIR SATING ABOVE 92%. DENIES ANY CHEST PAIN. TELE SHOWING SINUS TACH WITH HR 100-110'S. VITAL SIGNS STABLE. BLOOD PRESSURE STABLE. WOUND VAC ON RIGHT FOOT AT 120 MMHG, DRAINING SMALL AMOUNT OF BRIGHT RED BLOOD. PT COMPLAINS OF PAIN IN RIGHT FOOT 07/21. MEDICATED PER ORDERS IN EMAR. NS RUNNING AT 125 ML/HR IN LEFT HAND. ALERT AND ORIENTED X4. BILATERAL LOWER EXTREMITY AMPUTATION OF TOES. USES WHEELCHAIR AND WALKER AT HOME TO GET AROUND. EDUCATED ON UNIT, CALL LIGHT AND FALL PREVENTION. WILL CONTINUE TO MONITOR AND REPORT OFF.
[2020-12-21 18:42] LABS: Anion Gap 7 mmol/L (6-16); Blood Urea Nitrogen 13 mg/dL (8-24); Bun/Creatinine Ratio 15.5 (12.0-20.0); CO2, Blood 29 mmol/L (21-32); Chloride, Blood 97 mmol/L (98-108); Creatinine, Blood 0.84 mg/dL (0.60-1.20); Glomerular Filtration Rate >60 (60-); Glucose, Blood 292 mg/dL (70-99); Potassium, Blood 4.1 mmol/L (3.5-5.5); Sodium, Blood 133 mmol/L (136-145)
--- NOTE | 2020-12-21 19:50 | NUR ---
DISCUSSED WITH PRINTED CIRCUIT BOARDS PINNER LIBBY REGARDING PT NEEDING NORCO INSTEAD OF JOCELIN BECAUSE HE STATES THAT JOCELIN DOES NOT WORK FOR HIM. LIBBY APPROVED ORDER FOR NORCO.
--- NOTE | 2020-12-21 20:00 | NUR ---
DR. LOPEZ BEDSIDE WITH PATIENT DISCUSSING UPCOMING TREATMENT; PATIENT WANTS TO DISCHARGE TOMORROW "I FEEL FINE" PATIENT REPORTS. PATIENT BEGAN TO GET UPSET DISCUSSING POSSIBLE BELOW THE KNEE AMPUTATION AND STATED HE DOESNT FEEL LIKE HE CAN TALK WHEN NURSES IN ROOM; NURSES LEFT THE PATIENTS ROOM.
--- NOTE | 2020-12-21 20:10 | NUR ---
DR. LOPEZ REPORTS TO THIS RN THAT PATIENT WILL GO HOME TOMORROW ON TWO ANTIBIOTICS PATIENT IS ALREADY TAKING (BACTIM AND CLINDAMYCIN); NO DRESSING CHANGES AND CALL HOSPITALIST FOR BREAKTHROUGH PAIN MANAGEMENT.
--- NOTE | 2020-12-21 20:45 | NUR ---
CALLED LIBBY WYNNE REGARDING BREAK THROUGH PAIN FOR PT. DR LOPEZ WANTED AN ORDER FOR BREAK THROUGH PAIN MEDS CALLED IN. LIBBY WYNNE PUT IN ORDERS FOR IV FENTANYL.
--- NOTE | 2020-12-21 22:58 | NUR ---
PT GOING TO ROOM 230
--- NOTE | 2020-12-21 23:10 | NUR ---
RECEIVED REPORT FROM PCU NURSE FOR "YUSEF". PT A&OX4, VSS. ORIENTED TO ROOM, CALL LIGHT IN REACH. URINAL PROVIDED. WOUND VAC IN PLACE DRAINING SS FLUID.
--- NOTE | 2020-12-22 04:25 | NUR ---
SHIFT SUMMARY: YUSEF IS A&OX4. VSS, NO ACUTE EVENTS SINCE HIS TRANSFER FROM PCU. HE REPORTS MINIMAL PAIN RELIEF WITH ONE TABLET OF NORCO. TOLERATING PO INTAKE WELL, EXCELLENT URINE OUTPUT. HE IS USING THE URINAL WITHOUT DIFFICULTY. WOUND VAC TO RLE PATENT, DRESSING INTACT, DRAINING SS FLUID. HE USES THE CALL LIGHT APPROPRIATELY. HE HAS HAD A COUPLE EPISODES OF MILD CONFUSION WHICH HE ATTRIBUTES TO EXHAUSTION. HE HAS BEEN USING THE CALL LIGHT APPROPRIATELY. HE IS LYING IN BED WITH THE CALL LIGHT IN REACH. WILL REPORT TO DAY SHIFT RN.
[2020-12-22] MEDS ORDERED: LORCET 5-325 M1 EACH PO (11:52)
--- NOTE | 2020-12-22 12:57 | NUR ---
DISCHARGE SUMMARY PT A&OX4, VSS, LEFT FLOOR WITH OWN WC AND ALL PERSONAL POSSESSIONS INCLUDING DC PACKET AND 1 NARC SCRIPT. DC INSTRUCTIONS PROVIDED. PT REP UNDERSTANDING DC INSTRUCTIONS INCLUDING WOUND VAC, RESUME ABX THAT HE HAS AT HOME X2, FU APPT WITH DR LOPEZ ON THURSDAY (PT KNOWS HE NEEDS TO CALL AND CONFIRM TIME, THINKS IT IS 9AM), KEEP WOUND VAC/DRESSING DRY, NO DRIVING WHILE TAKING NARCOTICS. IV DC'D.
== END 2020-12-22 13:00 | disposition home or self-care (01) ==
LOC: PCU 17:12 → SURS 22:59
PROVIDERS: ADMIT Internal Medicine
DX: I95.9 Hypotension, unspecified (principal); E11.621 Type 2 diabetes mellitus with foot ulcer; L97.519 Non-pressure chronic ulcer of other part of right foot with unspecified severity; I10 Essential (primary) hypertension; E87.1 Hypo-osmolality and hyponatremia; Z89.431 Acquired absence of right foot; Z87.891 Personal history of nicotine dependence; Z79.84 Long term (current) use of oral hypoglycemic drugs
CPT/HCPCS: 36415; 80048; 82947; 85027; 96365; 96366; 96375; A9270; G0378; J2543; J3010; J3370; J7030

== ENCOUNTER 2021-01-02 20:07 | Emergency (ER) | payer OTHER ==
[~2021-01-02] VITALS: Ht 198.1 cm; Wt 108.9 kg
[~2021-01-02 20:07] MED LIST changes: +LORCET 5-325 M1 EACH PO
[2021-01-02 20:37] LABS: BASOPHILS ABSOLUTE AUTO 0.04 K/mm3 (0.00-0.23); BASOPHILS PERCENT AUTO 0 % (0-2); EOSINOPHILS ABSOLUTE AUTO 0.14 K/mm3 (0.00-0.68); EOSINOPHILS PERCENT AUTO 1 % (0-6); Hematocrit 32.7 % (37.0-53.0); Hemoglobin 10.6 g/dL (13.5-17.5); IMMATURE GRAN ABSOLUTE AUTO 0.12 K/mm3 (0.00-0.10); IMMATURE GRAN PERCENT AUTO 1 % (0-1); LYMPHOCYTES ABSOLUTE AUTO 2.78 K/mm3 (0.84-5.20); LYMPHOCYTES PERCENT AUTO 20 % (21-46); MONOCYTES ABSOLUTE AUTO 1.54 K/mm3 (0.16-1.47); MONOCYTES PERCENT AUTO 11 % (4-13); Mean Corpuscular HGB 23.7 pg (26.0-34.0); Mean Corpuscular HGB Conc 32.4 g/dL (31.5-36.5); Mean Corpuscular Volume 73 fL (80-100); Mean Platelet Volume 8.8 fL (9.1-12.4); NEUTROPHILS ABSOLUTE AUTO 9.49 K/mm3 (1.96-9.15); NEUTROPHILS PERCENT AUTO 67 % (41-73); Platelet Count 484 K/mm3 (150-400); RDW Coefficient Variation 15.3 % (11.7-14.2); Red Blood Cell Count 4.47 M/mm3 (4.30-5.90); White Blood Cell Count 14.11 K/mm3 (4.00-11.30)
[2021-01-02 20:55] LABS: Alanine Aminotransfer (ALT/SGP 17 U/L (12-78); Albumin, Blood 2.5 g/dL (3.4-5.0); Albumin/Globulin Ratio 0.4 (0.8-1.8); Alk Phos 175 U/L (50-136); Anion Gap 11 mmol/L (6-16); Aspartate Aminotrans (AST/SGOT 9 U/L (12-37); Bilirubin, Total 0.2 mg/dL (0.1-1.0); Blood Urea Nitrogen 15 mg/dL (8-24); Bun/Creatinine Ratio 17.4 (12.0-20.0); CO2, Blood 22 mmol/L (21-32); Calcium, Blood 9.3 mg/dL (8.5-10.1); Chloride, Blood 92 mmol/L (98-108); Creatinine, Blood 0.86 mg/dL (0.60-1.20); Globulin, Blood 5.8 g/dL (2.2-4.0); Glomerular Filtration Rate >60 (60-); Glucose, Blood 373 mg/dL (70-99); Potassium, Blood 4.3 mmol/L (3.5-5.5); Sodium, Blood 125 mmol/L (136-145); Total Protein, Blood 8.3 g/dL (6.4-8.2)
[2021-01-02 21:12] LABS: Troponin I <0.015 ng/mL (0.000-0.040)
[2021-01-02] MEDS ORDERED: LINE600 PO (22:06)
[2021-01-02] MEDS ORDERED: OXYACE7.5T PO (22:06)
[2021-01-02] MEDS ORDERED: CLIN150 PO (22:06)
== END 2021-01-02 22:50 | disposition home or self-care (01) ==
LOC: ER 20:07
PROVIDERS: Emergency Medicine
DX: L03.115 Cellulitis of right lower limb (principal); E87.1 Hypo-osmolality and hyponatremia; E11.9 Type 2 diabetes mellitus without complications; I10 Essential (primary) hypertension; Z88.8 Allergy status to other drugs, medicaments and biological substances; Z79.84 Long term (current) use of oral hypoglycemic drugs; Z79.899 Other long term (current) drug therapy
CPT/HCPCS: 36415; 80053; 83605; 83690; 84484; 85025; 87040; 93971; 99283-25; A9270

== ENCOUNTER 2021-01-15 10:18 | Inpatient (IN) | payer OTHER ==
[~2021-01-15] VITALS: Ht 198.1 cm; Wt 108.6 kg
[~2021-01-15 10:18] MED LIST changes: +CLIN150 PO; +OXYACE7.5T PO
[2021-01-15] MEDS ORDERED: INSULIN LONG ACTING (14:08)
[2021-01-15] MEDS ORDERED: INSULIN SHORT ACTING (14:09)
[2021-01-15] MEDS ORDERED: HUMALOG KW200 UNIT/2 SQ (14:15)
[2021-01-15] MEDS ORDERED: BASAGLAR K100 UNIT/1 (14:16)
[2021-01-15 15:27] LABS: BASOPHILS ABSOLUTE AUTO 0.02 K/mm3 (0.00-0.23); BASOPHILS PERCENT AUTO 0 % (0-2); EOSINOPHILS ABSOLUTE AUTO 0.11 K/mm3 (0.00-0.68); EOSINOPHILS PERCENT AUTO 1 % (0-6); Hematocrit 29.4 % (37.0-53.0); Hemoglobin 9.6 g/dL (13.5-17.5); IMMATURE GRAN ABSOLUTE AUTO 0.12 K/mm3 (0.00-0.10); IMMATURE GRAN PERCENT AUTO 1 % (0-1); LYMPHOCYTES ABSOLUTE AUTO 1.61 K/mm3 (0.84-5.20); LYMPHOCYTES PERCENT AUTO 12 % (21-46); MONOCYTES PERCENT AUTO 8 % (4-13); Mean Corpuscular HGB 23.5 pg (26.0-34.0); Mean Corpuscular HGB Conc 32.7 g/dL (31.5-36.5); Mean Corpuscular Volume 72 fL (80-100); Mean Platelet Volume 8.9 fL (9.1-12.4); NEUTROPHILS PERCENT AUTO 78 % (41-73); Platelet Count 479 K/mm3 (150-400); RDW Coefficient Variation 15.9 % (11.7-14.2); RDW Standard Deviation 40.9 fL (35.1-46.3); Red Blood Cell Count 4.09 M/mm3 (4.30-5.90); White Blood Cell Count 13.16 K/mm3 (4.00-11.30)
[2021-01-15 15:43] LABS: International Normalized Ratio 1.2; Prothrombin Time Results 12.7 Sec (9.7-11.5)
[2021-01-15 16:56] LABS: Alanine Aminotransfer (ALT/SGP 22 U/L (12-78); Albumin, Blood 1.9 g/dL (3.4-5.0); Albumin/Globulin Ratio 0.4 (0.8-1.8); Alk Phos 201 U/L (50-136); Anion Gap 8 mmol/L (6-16); Aspartate Aminotrans (AST/SGOT 8 U/L (12-37); Bilirubin, Total 0.3 mg/dL (0.1-1.0); Blood Urea Nitrogen 12 mg/dL (8-24); Bun/Creatinine Ratio 18.1 (12.0-20.0); CO2, Blood 24 mmol/L (21-32); Calcium, Blood 9.1 mg/dL (8.5-10.1); Chloride, Blood 96 mmol/L (98-108); Creatinine, Blood 0.66 mg/dL (0.60-1.20); Glomerular Filtration Rate >60 (60-); Glucose, Blood 278 mg/dL (70-99); Potassium, Blood 4.6 mmol/L (3.5-5.5); Sodium, Blood 128 mmol/L (136-145); Total Protein, Blood 6.9 g/dL (6.4-8.2)
--- NOTE | 2021-01-15 17:09 | NUR ---
Patient up to Ambulate independently. Gait steady. History, Chart, Medications and Allergies reviewed before start of procedure.Lungs clear T/O to Auscultation. Patient confirms NPO status and agrees with scheduled surgery. Pre-Op teaching done. Pt verbalizes understanding. Patient States Post-Procedure ride home has been arranged.
--- NOTE | 2021-01-15 20:53 | NUR ---
CAME TO PACU DIAPHORETIC DR HERNANDEZ AWARE . PT STATES HE GETS SWEATY LIKE THAT ONCE IN AWHILE
--- NOTE | 2021-01-15 22:08 | NUR ---
PT ARRIVED TO ROOM 226 FROM PACU ABOUT 2100. PT DROWSY, BUT AWAKENS TO VERBAL STIMULI EASILY. ORIENTED X 4. PT C/O PAIN IN R LEG; MED WITH NORCO. CALLED PER PT REQUEST; STATES NO FURTHER QUESTIONS OR CONCERNS. DR MCKEE TO SEE PT AT 2200 FOR CONSULT REGARDING PAIN AND BLOOD GLUCOSE. PT HAS BEEN ABLE TO TOLERATE PO INTAKE W/O NAUSEA SINCE ARRIVAL TO UNIT. PROVIDED WITH URINAL, AWAITING POST-OP VOID.
--- NOTE | 2021-01-16 03:51 | NUR ---
SHIFT SUMMARY PT IS A/O X4, S/P R BKA. STUMP SOCK AND SAM DRAIN IN PLACE TO R STUMP WNL. PT ALSO HAS ULCER ON L OUTER ANKLE WHICH WAS RE-DRESSED THIS SHIFT, PHOTOS TAKEN AND IN CHART. RESPOSITIONS SELF IN BED WITH ASSISTANCE PRN. PT HAS C/O 7-8/10 PAIN, HOWEVER PT HAS BEEN VERY DROWSY, AWAKENING EASILY TO VERBAL STIMULI BUT AT TIMES HAS FALLEN ASLEEP MID-SENTENCE. O2 SAT HAS BEEN ABOVE 94% ON RA WHILE AT REST, BP, RR, AND HR STABLE. IV FLUIDS INFUSING OVERNIGHT. PT IS TOLERATING PO INTAKE AND VOIDING USING URINAL. RESTING IN BED AT THIS TIME WITH CALL LIGHT IN REACH.
[2021-01-16 05:24] LABS: BASOPHILS ABSOLUTE AUTO 0.03 K/mm3 (0.00-0.23); BASOPHILS PERCENT AUTO 0 % (0-2); EOSINOPHILS ABSOLUTE AUTO 0.17 K/mm3 (0.00-0.68); EOSINOPHILS PERCENT AUTO 2 % (0-6); Hematocrit 21.6 % (37.0-53.0); Hemoglobin 6.8 g/dL (13.5-17.5); IMMATURE GRAN ABSOLUTE AUTO 0.12 K/mm3 (0.00-0.10); IMMATURE GRAN PERCENT AUTO 1 % (0-1); LYMPHOCYTES ABSOLUTE AUTO 2.25 K/mm3 (0.84-5.20); LYMPHOCYTES PERCENT AUTO 25 % (21-46); MONOCYTES ABSOLUTE AUTO 1.11 K/mm3 (0.16-1.47); MONOCYTES PERCENT AUTO 12 % (4-13); Mean Corpuscular HGB 23.2 pg (26.0-34.0); Mean Corpuscular HGB Conc 31.5 g/dL (31.5-36.5); Mean Corpuscular Volume 74 fL (80-100); Mean Platelet Volume 8.9 fL (9.1-12.4); NEUTROPHILS ABSOLUTE AUTO 5.41 K/mm3 (1.96-9.15); NEUTROPHILS PERCENT AUTO 60 % (41-73); Platelet Count 380 K/mm3 (150-400); RDW Coefficient Variation 15.9 % (11.7-14.2); RDW Standard Deviation 42.9 fL (35.1-46.3); Red Blood Cell Count 2.93 M/mm3 (4.30-5.90); White Blood Cell Count 9.09 K/mm3 (4.00-11.30)
[2021-01-16 05:40] LABS: Anion Gap 7 mmol/L (6-16); Blood Urea Nitrogen 15 mg/dL (8-24); Bun/Creatinine Ratio 19.7 (12.0-20.0); CO2, Blood 25 mmol/L (21-32); Calcium, Blood 7.9 mg/dL (8.5-10.1); Chloride, Blood 96 mmol/L (98-108); Creatinine, Blood 0.76 mg/dL (0.60-1.20); Glomerular Filtration Rate >60 (60-); Glucose, Blood 405 mg/dL (70-99); Sodium, Blood 128 mmol/L (136-145)
--- NOTE | 2021-01-16 05:59 | NUR ---
ATTEMPTED TO CALL PHYSICIAN REGARDING H&H. AWAITING CALL BACK
--- NOTE | 2021-01-16 06:19 | NUR ---
SPOKE WITH DR. MCKEE REGARDING H&H. ORDERS GIVEN TO TRANSFUSE 1 UNIT PRBC'S.
[2021-01-16 14:50] LABS: Hematocrit 24.4 % (37.0-53.0); Hemoglobin 7.7 g/dL (13.5-17.5)
--- NOTE | 2021-01-16 19:11 | NUR ---
END OF SHIFT SUMMARY: PATIENT PAIN CONTROLLED WITH IV PRNS AND PO PRNS (SEE EMAR). PATIENT TOLERATED WITHOUT DROWSINESS. PATIENT RECEIVED ONE UNIT OF PRBCS THIS MORNING. PATIENT TOLERATED WITHOUT ANY SIGNS OR SYMPTOMS OF REACTION. PATIENT DENIED NAUSEA THROUGHOUT SHIFT. PATIENT HAD AN EXCELLENT APPETITE. PATIENT ABLE TO DISCUSS DIABETIC DIET WITH AUDIOVISUAL AIDS TECHNICIAN. PATIENT APPRECIATIVE OF CARE. PATIENT INDEPENDENT IN THE BED. PATIENT'S SIGNIFICANT OTHER CAME TO VISIT THE PATIENT THIS AFTERNOON. PATIENT UNDERSTANDING THAT HE WILL NEED TO BE AN INPATIENT FOR A COUPLE OF DAYS MORE.
[2021-01-17 05:04] LABS: BASOPHILS ABSOLUTE AUTO 0.03 K/mm3 (0.00-0.23); BASOPHILS PERCENT AUTO 0 % (0-2); EOSINOPHILS ABSOLUTE AUTO 0.21 K/mm3 (0.00-0.68); EOSINOPHILS PERCENT AUTO 3 % (0-6); Hematocrit 24.8 % (37.0-53.0); Hemoglobin 7.9 g/dL (13.5-17.5); IMMATURE GRAN ABSOLUTE AUTO 0.13 K/mm3 (0.00-0.10); IMMATURE GRAN PERCENT AUTO 2 % (0-1); LYMPHOCYTES ABSOLUTE AUTO 2.69 K/mm3 (0.84-5.20); LYMPHOCYTES PERCENT AUTO 32 % (21-46); MONOCYTES ABSOLUTE AUTO 1.04 K/mm3 (0.16-1.47); MONOCYTES PERCENT AUTO 12 % (4-13); Mean Corpuscular HGB 24.2 pg (26.0-34.0); Mean Corpuscular HGB Conc 31.9 g/dL (31.5-36.5); Mean Corpuscular Volume 76 fL (80-100); Mean Platelet Volume 8.9 fL (9.1-12.4); NEUTROPHILS ABSOLUTE AUTO 4.37 K/mm3 (1.96-9.15); NEUTROPHILS PERCENT AUTO 52 % (41-73); Platelet Count 402 K/mm3 (150-400); RDW Coefficient Variation 16.1 % (11.7-14.2); RDW Standard Deviation 44.6 fL (35.1-46.3); Red Blood Cell Count 3.27 M/mm3 (4.30-5.90); White Blood Cell Count 8.47 K/mm3 (4.00-11.30)
[2021-01-17 05:35] LABS: Anion Gap 6 mmol/L (6-16); Blood Urea Nitrogen 9 mg/dL (8-24); Bun/Creatinine Ratio 14.9 (12.0-20.0); CO2, Blood 25 mmol/L (21-32); Calcium, Blood 8.1 mg/dL (8.5-10.1); Chloride, Blood 102 mmol/L (98-108); Creatinine, Blood 0.61 mg/dL (0.60-1.20); Glomerular Filtration Rate >60 (60-); Glucose, Blood 211 mg/dL (70-99); Potassium, Blood 4.3 mmol/L (3.5-5.5); Sodium, Blood 133 mmol/L (136-145)
--- NOTE | 2021-01-17 07:28 | NUR ---
SHIFT SUMMARY POD2 R BKA, A/O X4, VSS, TOLERATING PO, LARGE BM THIS SHIFT, VOIDING WELL, PAIN MANAGED BUT PT REPORTS DECREASE IN EFFECTIVENESS OF LAST DOSE (0548 PER EMAR), DAY RN AWARE AND WILL GET ORDERS FROM NO ACUTE EVENTS THIS SHIFT. CALL LIGHT IN REACH, REPORT GIVEN TO DAY RN.
--- NOTE | 2021-01-17 17:39 | NUR ---
SUMMARY: PT IS POD 2 R BKA. VSS, A/O. NO ACUTE CHANGE. DR. LOPEZ DID A DRESSING CHANGE AT BEDSIDE THIS AFTERNOON, SURGICAL SITE WNL. PT ELEVATING LEG AND STUMP SOCK IN PLACE. PAIN APPEARS TO BE MANAGED WELL PER EMAR. ABX INFUSED. PT DID WELL WITH THERAPY, TRANSFERS WELL. PLAN IS HOME TOMORROW WITH . NO ACUTE SAFETY CONCERNS, WILL REPORT TO FLORES GONZALEZ.
--- NOTE | 2021-01-18 06:10 | NUR ---
SHIFT SUMMARY POD3 R BKA, A/O X4, VSS, TOLERATING PO, SELF TRANSFERS STAND/PIVOT FROM BED TO WC/BSC AND BACK, VOIDING WELL, PAIN MANAGMENT IMPROVED TONIGHT COMPARED TO PRIOR HEDIS MANAGER. NO ACUTE EVENTS THIS SHIFT. CALL LIGHT IN REACH, WILL CONTINUE TO MONITOR AND REPORT TO ONCOMING DAY RN.
[2021-01-18] MEDS ORDERED: INSULANPEN SC (13:14)
[2021-01-18] MEDS ORDERED: HUMALOG KW100 UNIT/1 SQ (13:19)
[2021-01-18] MEDS ORDERED: HYDMOR2 PO (13:22)
--- NOTE | 2021-01-18 14:09 | NUR ---
DISCHARGE: PACKET PRINTED AND PT EDUCATED. PT REPORTS GIVEN SCRIPT FOR DILAUDID. IV DC'D WNL AND PT GIVEN WOUND CARE DRESSINGS/INSTRUCTIONS. PT LEFT UNIT AT THIS TIME VIA OWN WHEELCHAIR WITH FRIEND.
== END 2021-01-18 14:00 | disposition home or self-care (01) | DRG 240 ==
LOC: ORSCMMR 10:18 → SURS 10:18 → ORSCMMR 10:19 → SURS 16:58 → ORSCMMR 20:59 → SURS 20:59
PROVIDERS: Internal Medicine; Pharmacist; ADMIT Orthopaedic Surgery
PROC: 0Y6H0Z1 Detachment at Right Lower Leg, High, Open Approach (ICD-10-PCS; principal; 2021-01-15 08:00)
PROC: 30233N1 Transfusion of Nonautologous Red Blood Cells into Peripheral Vein, Percutaneous Approach (ICD-10-PCS; 2021-01-16)
DX: E11.52 Type 2 diabetes mellitus with diabetic peripheral angiopathy with gangrene (principal); M86.8X7 Other osteomyelitis, ankle and foot; I96 Gangrene, not elsewhere classified; D62 Acute posthemorrhagic anemia; E87.1 Hypo-osmolality and hyponatremia; E46 Unspecified protein-calorie malnutrition; E11.69 Type 2 diabetes mellitus with other specified complication; I10 Essential (primary) hypertension; E11.42 Type 2 diabetes mellitus with diabetic polyneuropathy; Z79.899 Other long term (current) drug therapy; Z79.84 Long term (current) use of oral hypoglycemic drugs; Z87.891 Personal history of nicotine dependence; Z86.14 Personal history of Methicillin resistant Staphylococcus aureus infection; Z89.432 Acquired absence of left foot; Z68.27 Body mass index [BMI] 27.0-27.9, adult
CPT/HCPCS: 36415; 36430; 80048; 80053; 80202; 82947; 83036; 85014; 85018; 85025; 85610; 86850; 86900; 86901; 86923; 88307; 88311; 97110; 97161; A9270; A9270-GY; J0690; J1170; J1885; J2405; J2704; J3010; J3370; J7030; J7120; P9016; P9046

== ENCOUNTER → 2021-09-30 | Outpatient (CLI) | payer OTHER ==
[~2021-09-30] MED LIST changes: +BASAGLAR K100 UNIT/1; +HUMALOG KW100 UNIT/1 SQ; +HUMALOG KW200 UNIT/2 SQ; +INSULANPEN SC; +INSULIN LONG ACTING; +INSULIN SHORT ACTING
[2021-09-30 20:06] LABS: Appearance, Urine Hazy (Clear); Bilirubin, Urine Neg (Neg); Blood, Urine 4+ (Neg); Color, Urine Yellow (P-Yellow); Glucose Qualitative, Urine 4+ (Neg); Ketones, Urine Neg (Neg); Leukocyte Esterase, Urine 3+ (Neg); Nitrite, Urine Pos (Neg); Protein, Urine 4+ (Neg); Urobilinogen, Urine NORM (Normal)
[2021-09-30 21:02] LABS: Squamous Epithelial Cells Few /hpf (Few)
[2021-09-30 21:03] LABS: Amorphous Mod (0-Heavy); Bacteria Many /hpf; Mucus Light (0-Heavy); Yeast/Fungi Urine Rare /hpf
== END | disposition home or self-care (01) ==
LOC: LAB SHORT 17:45
PROVIDERS: Physician Assistant
DX: R30.9 Painful micturition, unspecified (principal)
CPT/HCPCS: 81001

== ENCOUNTER 2021-10-19 19:09 | Emergency (ER) | payer OTHER ==
[~2021-10-19] VITALS: Ht 182.9 cm; Wt 86.2 kg
[2021-10-19 19:49] LABS: Hematocrit 40.6 % (37.0-53.0); Hemoglobin 13.7 g/dL (13.5-17.5); Mean Corpuscular HGB 25.7 pg (26.0-34.0); Mean Corpuscular HGB Conc 33.7 g/dL (31.5-36.5); Mean Corpuscular Volume 76 fL (80-100); Mean Platelet Volume 10.1 fL (9.1-12.4); Platelet Count 286 K/mm3 (150-400); RDW Coefficient Variation 14.9 % (11.7-14.2); RDW Standard Deviation 41.1 fL (35.1-46.3); Red Blood Cell Count 5.33 M/mm3 (4.30-5.90); White Blood Cell Count 35.27 K/mm3 (4.00-11.30)
[2021-10-19 20:07] LABS: BAND PERCENT MAN 11 % (0-8); BASOPHILS PERCENT MAN 0 % (0-2); EOSINOPHILS PERCENT MAN 0 % (0-6); LYMPHOCYTES PERCENT MAN 2 % (21-46); METAMYELOCYTE ABSOLUTE MAN 0.35 K/mm3 (0.00-0.00); METAMYELOCYTE PERCENT MAN 1 % (0-0); MONOCYTES ABSOLUTE MAN 1.41 K/mm3 (0.16-1.47); MONOCYTES PERCENT MAN 4 % (4-13); MYELOCYTE ABSOLUTE MAN 0.35 K/mm3 (0.00-0.00); MYELOCYTE PERCENT MAN 1 % (0-0); NEUTROPHILS ABSOLUTE MAN 32.44 K/mm3 (1.96-9.15); SEG NEUTROPHILS PERCENT MAN 81 % (41-73); TOTAL CELLS COUNTED 100
[2021-10-19 20:15] LABS: Troponin I <0.015 ng/mL (0.000-0.040)
[2021-10-19 20:27] LABS: Influenza A, PCR NEGATIVE (NEGATIVE); Influenza B, PCR NEGATIVE (NEGATIVE); Resp Syncytial Virus, PCR NEGATIVE (NEGATIVE); SARS-Cov-2 (COVID-19) PCR, MMC NEGATIVE (NEGATIVE)
[2021-10-19 20:39] LABS: Alanine Aminotransfer (ALT/SGP 13 U/L (12-78); Albumin, Blood 0.7 g/dL (3.4-5.0); Albumin/Globulin Ratio 0.1 (0.8-1.8); Alk Phos 247 U/L (50-136); Anion Gap 16 mmol/L (6-16); Aspartate Aminotrans (AST/SGOT 10 U/L (12-37); Bilirubin, Total 0.4 mg/dL (0.1-1.0); Blood Urea Nitrogen 85 mg/dL (8-24); Bun/Creatinine Ratio 28.1 (12.0-20.0); CO2, Blood 19 mmol/L (21-32); Calcium, Blood 9.2 mg/dL (8.5-10.1); Chloride, Blood 74 mmol/L (98-108); Creatinine, Blood 3.03 mg/dL (0.60-1.20); Globulin, Blood 6.6 g/dL (2.2-4.0); Glomerular Filtration Rate 22 (60-); Glucose, Blood 808 mg/dL (70-99); Potassium, Blood 5.7 mmol/L (3.5-5.5); Sodium, Blood 109 mmol/L (136-145); Total Protein, Blood 7.3 g/dL (6.4-8.2)
[2021-10-19 21:24] LABS: Anti-Xa UFH, PHA Monitoring <0.10 IU/mL; International Normalized Ratio 1.14; Prothrombin Time Results 11.9 Sec (9.7-11.5)
[2021-10-19 21:26] LABS: Troponin I 0.037 ng/mL (0.000-0.040)
[2021-10-19 21:27] LABS: Glucose, Blood 778 mg/dL (70-99)
== END 2021-10-20 04:30 ==
LOC: ER 19:09
PROVIDERS: Emergency Medicine; Internal Medicine Cardiovascular Disease
DX: I46.9 Cardiac arrest, cause unspecified (principal); J18.9 Pneumonia, unspecified organism; E11.65 Type 2 diabetes mellitus with hyperglycemia; I10 Essential (primary) hypertension; M14.672 Charcot's joint, left ankle and foot; Z79.4 Long term (current) use of insulin; Z88.6 Allergy status to analgesic agent; Z88.8 Allergy status to other drugs, medicaments and biological substances; Z79.899 Other long term (current) drug therapy; Z87.891 Personal history of nicotine dependence; Z20.822 Contact with and (suspected) exposure to COVID-19
CPT/HCPCS: 0241U; 31500; 36415; 71045; 71250; 80053; 82010; 82800; 82947; 83880; 84145; 84484; 85025; 85520; 85610; 92950; 93005; 93010; 99285-25; A9270; J0282; J0456; J0696; J1815; J7030; J7050